=== PATIENT | female | born 1945 | race Caucasian/White ===

== ENCOUNTER 2018-09-03 00:31 | Outpatient (CLI) | payer MEDICARE, BC, SELFPAY ==
--- NOTE | 2018-09-03 11:43 | DI.MAMMO_ITS ---
SYMPTOM/DIAGNOSIS: SCREENING, Z12.31 MAMMOGRAMS: Mammograms were interpreted according to the usual protocol including computer analysis with CAD system, tomosynthesis and C view imaging. Comparison with prior examinations. Breast density B. No suspicious masses or microcalcifications are seen. There is no definite evidence of malignancy. IMPRESSION: Negative mammogram. Routine screening is recommended. Category I. MQSA ASSESSMENT OF FINDINGS: Negative. Category 1. Patient will receive a letter notifying them of these results. BI-RADS category B. There are scattered areas of fibroglandular density.
== END 2018-09-03 00:51 ==
PROVIDERS: PCP Family Medicine; Visit Provider Family Medicine
DX: Z12.31 Encounter for screening mammogram for malignant neoplasm of breast (principal)
CPT/HCPCS: 77063; 77067

== ENCOUNTER 2018-09-27 00:12 | Outpatient (CLI) | payer MEDICARE, BC, SELFPAY ==
--- NOTE | 2018-09-27 13:56 | DI.US_ITS ---
SYMPTOMS/DIAGNOSIS: PELVIC AND PERINEAL PAIN, RECURRENT UTI, R10.2 RENAL ULTRASOUND: The kidneys are normal in size and shape. Tiny echogenic foci are present in both kidneys centrally raising the possibility of intrarenal calculi. There appears to be mild right and left hydronephrosis. The urinary bladder is unremarkable in appearance and pre and post void urinary bladder volume measurements are 289 cc's and 28 cc's respectively. The ureteral jets are visualized bilaterally. CONCLUSION: Question mild bilateral hydronephrosis. If clinically indicated, additional evaluation with CT urogram should be considered. ADDENDUM BY DR ORTEGA OF DICTATION FOR PELVIC AND TV ULTRASOUND: Comparison is made with 08/24/11. Transabdominal and transvaginal exams were performed. The uterus measures 7.1 by 3.8 by 5.6 cm. Multiple calcified fibroids are again noted, the largest posteriorly. The endometrium measures 4 mm. in thickness. There is a small amount of fluid in the endometrium. No focal endometrial abnormality is seen. There are a few small Nabothian cysts. A 1.6 cm. cyst area is seen posterior to the cervix which could represent an additional Nabothian cyst versus mesenteric cyst. The left ovary was unable to be visualized. IMPRESSION: Multiple calcified fibroids. Small amount of fluid in the endometrium without focal endometrial abnormality or thickening. Non visualization of the left ovary. Small cystic area posterior to the cervix could be related to the left ovary which was not definitely seen.
== END 2018-09-27 00:32 ==
PROVIDERS: PCP Family Medicine; Visit Provider Family Medicine
DX: R10.2 Pelvic and perineal pain (principal); N39.0 Urinary tract infection, site not specified; D25.9 Leiomyoma of uterus, unspecified; N13.30 Unspecified hydronephrosis
CPT/HCPCS: 76770; 76830; 76856

== ENCOUNTER → 2018-10-14 11:00 | Outpatient (BNVA) | payer MEDICARE, BC, SELFPAY | PROVIDERS: PCP Family Medicine; Referring Provider Family Medicine; Visit Provider Nurse Practitioner Gerontology | DX: R31.0 Gross hematuria (principal); R10.32 Left lower quadrant pain; Z87.440 Personal history of urinary (tract) infections | CPT/HCPCS: 81003; 99204; 99215 ==

== ENCOUNTER 2018-10-21 00:41 | Outpatient (CLI) | payer MEDICARE, BC, SELFPAY ==
--- NOTE | 2018-10-21 09:46 | DI.CT_ITS ---
SYMPTOM/DIAGNOSIS: GROSS HEMATURIA, R31.0, R31.[address]: Comparison is made with 03/30/10. Images were performed before and after IV contrast. 7 minute delayed images were also performed. There is a 2 by 3 mm. non obstructing stone at the lower pole of the left kidney. A barely visible stone is seen near the lower pole of the right kidney. No ureteral or bladder calculi or hydronephrosis is seen. The nephrograms and pyelograms are symmetric. No collecting system filling defects are seen. No masses are identified. The renal pelves are mildly prominent bilaterally. There is no calyceal blunting. There is kinking of both proximal ureters. The lung bases are clear. The patient is status post cholecystectomy. There are a few tiny liver cysts. The spleen, pancreas and adrenals are unremarkable. The appendix is normal. There is a moderate quantity of stool. Diverticula are seen in the descending and sigmoid colon. There is no evidence of diverticulitis. There is no small bowel dilatation or inflammatory change. A calcified uterine fibroid is seen. The ovaries are unremarkable. There is no free fluid. There is a mild T 11 compression fracture. It appears unchanged when compared with an MRI dated 07/12/15. Degenerative disc changes are seen, greatest at L 5-S 1. IMPRESSION: Small bilateral non obstructing renal calculi. Mild prominence of both renal pelves which may be secondary to kinking of the upper ureters.
[2018-10-21 10:19] LABS: CREATININE 0.58 mg/dL (0.55-1.02)
[2018-10-21] MEDS: Omnipaque 350 MG/ML 100 ML BTL IJ (10:45)
== END 2018-10-21 01:01 ==
PROVIDERS: PCP Family Medicine; Visit Provider Nurse Practitioner Gerontology
DX: R31.0 Gross hematuria (principal); N20.0 Calculus of kidney
CPT/HCPCS: 36415; 74178; 82565; J3490

== ENCOUNTER 2019-10-08 06:17 | Outpatient (CLI) | payer MEDICARE, BC, SELFPAY ==
--- NOTE | 2019-10-08 11:09 | DI.MAMMO_ITS ---
EXAM: MG MAMMO SCREENING CLINICAL HISTORY: screening Z12.39. TECHNIQUE: Full field digital CC and MLO mammographic images were obtained with 3D tomosynthesis and utilizing computer aided detection (CAD). COMPARISON: . 2009 through 2018 FINDINGS: Breast Density - Category B - Scattered areas of fibroglandular density Masses/Architectural Distortion: None seen. Microcalcifications: No suspicious pleomorphic-type calcifications are seen. Skin Thickening/Nipple Retraction: None. Axilla: Unremarkable. IMPRESSION: 1. BI-RADS category 1, negative. No significant interval change with no specific features of maligna ncy noted. 2. Unless there is more urgent need, screening mammography is recommended, as per [employer] [place] guidelines. A negative radiographic report should not delay biopsy if a dominant or clinically suspicious mass is present. Up to ten percent of cancers are not identified on mammography. A negative report may reinforce clinical impression. Adenosis and dense breasts may obscure an underlying neoplasm. False positive reports average 6 to 10%. Patient will receive a letter notifying them of these results.
== END 2019-10-08 06:37 ==
PROVIDERS: PCP Family Medicine; Visit Provider Family Medicine
DX: Z12.31 Encounter for screening mammogram for malignant neoplasm of breast (principal)
CPT/HCPCS: 77063; 77067

== ENCOUNTER 2020-08-04 03:09 | Outpatient (CLI) | payer MEDICARE, BC, SELFPAY ==
[2020-08-04 13:12] LABS: Abs Immature Grans 0.01 10^3/uL (0.0-0.06); Absolute Basophil Count 0.03 10^3/uL (0.0-0.2); Absolute Eosinophil Count 0.09 10^3/uL (0.0-0.7); Absolute Lymphocyte Count 0.84 10^3/uL (1.2-3.4); Absolute Monocyte Count 0.44 10^3/uL (0.1-0.8); Absolute Neutrophil Count 2.69 10^3/uL (1.2-6.7); Basophils % 0.7; Eosinophils % 2.2; HCT 40.4 % (36.0-46.0); HGB 13.8 g/dL (11.2-15.7); Immature Grans % 0.2; Lymphocytes % 20.5; MCH 29.6 pg (27.0-33.0); MCHC 34.2 % (32.0-36.0); MCV 86.5 fL (80-95); MPV 11.3 fL (8.0-11.0); Monocytes % 10.7; Neutrophils % 65.7; Nucleated RBC 0 %; Platelet Count 199 10^3/uL (130-400); RBC 4.67 10^6/uL (3.93-5.22); RDW 12.4 % (11.7-14.6); RDW-SD 39.3 fL
[2020-08-04 13:30] LABS: ALT 24 U/L (14-59); AST 22 U/L (15-37); Albumin 3.8 g/dL (3.4-5.0); Alkaline Phosphatase 75 U/L (46-116); Amylase 73 U/L (25-115); Anion Gap 5.7 mmol/L (3-11); BUN 25 mg/dL (7-18); Bilirubin, Total 0.9 mg/dL (0.2-1.0); CO2 28.3 mmol/L (21.0-32.0); CREATININE 0.66 mg/dL (0.55-1.02); Calcium 9.2 mg/dL (8.5-10.1); Chloride 104 mmol/L (98-107); Glucose 93 mg/dL (74-106); Lipase 117 U/L (73-393); Potassium 4.5 mmol/L (3.5-5.1); Sodium 138 mmol/L (136-145); Total Protein 6.8 g/dL (6.4-8.2)
[2020-08-04 13:40] LABS: Bilirubin Negative (Negative); Blood Trace-intact (Negative); Clarity Clear (Clear); Glucose Negative (Negative); Ketones Negative (Negative); Leukocyte Esterase Negative (Negative); Nitrite Negative (Negative); Specific Gravity 1.025 (1.005-1.025); Urobilinogen 0.2 EU/dL (Up TO 0.2); pH 7.5 (5-8)
[2020-08-04 13:50] LABS: Bacteria Few HPF (Negative); Epithelial Cells Few HPF (Negative); WBC 20-50 HPF (0-5)
[2020-08-04 13:51] LABS: C & S Indicated? Yes; Casts Negative LPF (Negative); Crystals Other HPF (Negative); Mucus Negative (Negative)
[2020-08-04 15:33] LABS: ESR 9 mm/hr (0-30)
== END 2020-08-04 03:29 ==
PROVIDERS: PCP Family Medicine; Visit Provider Family Medicine
DX: R10.9 Unspecified abdominal pain (principal)
CPT/HCPCS: 36415; 80053; 83690; 85652; 87077; 81003; 81015; 82150; 85025; 87086; 87186

== ENCOUNTER 2020-08-26 12:56 | Outpatient (REF) | payer MEDICARE, BC, SELFPAY ==
[2020-08-26 14:04] LABS: Bilirubin Negative (Negative); Blood Trace-intact (Negative); Clarity Clear (Clear); Glucose Negative (Negative); Ketones Negative (Negative); Leukocyte Esterase Negative (Negative); Nitrite Negative (Negative); Urobilinogen 0.2 EU/dL (Up TO 0.2); pH 7.5 (5-8)
[2020-08-26 14:22] LABS: Bacteria Moderate HPF (Negative); C & S Indicated? Yes; Casts Negative LPF (Negative); Crystals Negative HPF (Negative); Epithelial Cells Rare HPF (Negative); Mucus Negative (Negative)
== END 2020-08-26 13:16 ==
LOC: LBN 12:56
PROVIDERS: PCP Family Medicine; Visit Provider Family Medicine
DX: R31.9 Hematuria, unspecified (principal)
CPT/HCPCS: 87077; 81003; 81015; 87086; 87186

== ENCOUNTER 2020-09-22 21:48 | Outpatient (REF) | payer MEDICARE, BC, SELFPAY ==
[2020-09-22 22:35] LABS: Bacteria Negative HPF (Negative); Bilirubin Negative (Negative); Blood Negative (Negative); Casts Negative LPF (Negative); Clarity Clear (Clear); Crystals Negative HPF (Negative); Epithelial Cells Few HPF (Negative); Glucose Negative (Negative); Ketones Negative (Negative); Leukocyte Esterase Trace (Negative); Mucus Negative (Negative); Nitrite Negative (Negative); RBC Negative HPF (0-2); Specific Gravity 1.015 (1.005-1.025); Urobilinogen 0.2 EU/dL (Up TO 0.2)
[2020-09-23 07:16] LABS: C & S Indicated? Yes
== END 2020-09-22 22:08 ==
LOC: NCHCN 21:48
PROVIDERS: PCP Family Medicine; Visit Provider Family Medicine
DX: R31.9 Hematuria, unspecified (principal)
CPT/HCPCS: 87077; 81003; 81015; 87086; 87186

== ENCOUNTER 2020-10-13 02:49 | Outpatient (CLI) | payer MEDICARE, BC, SELFPAY ==
[2020-10-13 12:57] LABS: Bilirubin Negative (Negative); Blood Negative (Negative); Clarity Clear (Clear); Glucose Negative (Negative); Ketones Negative (Negative); Leukocyte Esterase Negative (Negative); Nitrite Negative (Negative); Specific Gravity 1.025 (1.005-1.025); Urobilinogen 0.2 EU/dL (Up TO 0.2); pH 7.5 (5-8)
== END 2020-10-13 02:50 | disposition home or self-care (01) ==
LOC: LOS 02:49
PROVIDERS: PCP Family Medicine; Visit Provider Family Medicine
DX: R31.9 Hematuria, unspecified (principal); Z87.440 Personal history of urinary (tract) infections
CPT/HCPCS: 81003

== ENCOUNTER 2020-12-13 01:21 | Outpatient (CLI) | payer MEDICARE, BC, SELFPAY ==
--- NOTE | 2020-12-13 07:45 | DI.US_ITS ---
EXAM: US PELVIS TRANSVAGINAL CLINICAL HISTORY: LLQ, recurrent. protective services officer exam unremarkable,R10.32 TECHNIQUE: Ultrasound of the pelvis was performed both transabdominal and transvaginal. COMPARISON: US US renal pelvic transvaginal from 09/27/2018 FINDINGS: Both transabdominal and transvaginal pelvic ultrasound examinations were performed. UTERUS: Measures 8 cm length x 4.8 cm AP x 5.2 cm wide. There are multiple uterine fibroids again notedlargest again noted be located posteriorly and measure s approximately 2.8 x 2.5 x 2.3 cm. This is left of center. Other smaller fibroids are noted at the level the fundus. Endometrial thickness measures 1-2 mm. There is no fluid in the endometrial canal. CERVIX: Multiple small nabothian cysts are again noted. RIGHT OVARY: Measures 2.3 x 1.8 x 1.7 cm No significant cysts nor masses evident in the right ovary. LEFT OVARY: Measures 2.1 x 1.2 x 1.4 cm No significant cysts nor masses evident in the left ovary. CUL-DE-SAC: No free fluid evident. IMPRESSION: 1. Multiple calcified uterine fibroids again noted. 2. No obvious abnormal adnexal findings. 3. No free fluid evident in the adnexal regions and cul-de-sac. DATA REPOSITORY:
== END 2020-12-13 01:41 ==
PROVIDERS: PCP Family Medicine; Visit Provider Obstetrics & Gynecology Gynecology
DX: R10.32 Left lower quadrant pain (principal); D25.9 Leiomyoma of uterus, unspecified
CPT/HCPCS: 76830; 76856

== ENCOUNTER 2021-01-05 01:55 | Outpatient (CLI) | payer MEDICARE, BC, SELFPAY ==
--- NOTE | 2021-01-05 11:15 | DI.MAMMO_ITS ---
Exam(s) MAMMO SCREENING EXAM: MAMMO SCREENING CLINICAL HISTORY: screening,Z12.39. TECHNIQUE: Bilateral full field digital CC and MLO mammographic images were obtained with 3D tomosyn thesis and utilizing computer aided detection (CAD). COMPARISON: Prior mammograms dating back to 2010, the most recent being September 2019. FINDINGS: There are no new spiculated masses nor malignant appearing microcalcification groups. Asymmetric density anteriorly in the left breast is unchanged from prior studies. There is no significant architectural distortion nor skin thickening-retraction. IMPRESSION: No radiographic evidence of malignancy. BI-RADS Category 1 - Negative Breast Density - Category B - Scattered areas of fibroglandular density Breast density Category C or D implies that the patient has dense breast tissue. Dense breast tissue can make it harder to find cancer on a mammogram. Dense breast tissue is also associated with an incr eased risk of breast cancer. This information about the result of the mammogram report was provided to the patient to raise their awareness. Use this report when you speak with the patient about their risks for breast cancer, which includes their family history. At that time, you may recommend additional screening tests (Ultrasoun d or MRI) as these tests may add significant information. A negative radiographic report should not delay biopsy if a dominant or clinically suspicious mass is present. Up to ten percent of cancers are not identified on mammography. A negative report may reinforce clinical impression. Adenosis and dense breasts may obscure an underlying neoplasm. False positive reports average 6 to 10%. Patient will receive a letter notifying them of these results.
== END 2021-01-05 02:15 ==
PROVIDERS: PCP Family Medicine; Visit Provider Family Medicine
DX: Z12.31 Encounter for screening mammogram for malignant neoplasm of breast (principal)
CPT/HCPCS: 77063; 77067

== ENCOUNTER 2021-02-01 20:54 | Outpatient (REF) | payer MEDICARE, BC, SELFPAY | END 2021-02-01 20:55 | disposition home or self-care (01) | LOC: LBN 20:54 | PROVIDERS: PCP Family Medicine; Visit Provider Nurse Practitioner Family | DX: N39.0 Urinary tract infection, site not specified (principal) | CPT/HCPCS: 87086 ==

== ENCOUNTER 2021-02-09 20:57 | Outpatient (REF) | payer MEDICARE, BC, SELFPAY ==
[2021-02-09 17:30] LABS: Bilirubin Negative (Negative); Blood Trace-intact (Negative); Clarity Clear (Clear); Glucose Negative (Negative); Ketones Negative (Negative); Leukocyte Esterase Trace (Negative); Nitrite Positive (Negative); Specific Gravity 1.025 (1.005-1.025); Urobilinogen 0.2 EU/dL (Up TO 0.2)
[2021-02-09 18:26] LABS: Bacteria Many HPF (Negative); C & S Indicated? Yes; Casts Negative LPF (Negative); Crystals Negative HPF (Negative); Epithelial Cells Few HPF (Negative); Mucus Negative (Negative); Other Cells Negative (Negative); RBC Negative HPF (0-2); WBC >50 HPF (0-5)
== END 2021-02-09 20:58 | disposition home or self-care (01) ==
LOC: LBN 20:57
PROVIDERS: PCP Family Medicine; Visit Provider Family Medicine
DX: N39.0 Urinary tract infection, site not specified (principal)
CPT/HCPCS: 87077; 81003; 81015; 87086; 87186

== ENCOUNTER 2021-02-17 18:16 | Outpatient (REF) | payer MEDICARE, BC, SELFPAY | END 2021-02-17 18:17 | disposition home or self-care (01) | LOC: LBN 18:16 | PROVIDERS: PCP Family Medicine; Visit Provider Nurse Practitioner | DX: N76.0 Acute vaginitis (principal); R30.0 Dysuria | CPT/HCPCS: 87480; 87510; 87660 ==

== ENCOUNTER 2021-06-07 09:16 | Outpatient (CLI) | payer MEDICARE, BC, SELFPAY ==
--- NOTE | 2021-06-07 09:00 | DI.RAD_ITS ---
Exam(s) XR SHOULDER RT COMPLETE 2+V EXAM: XR SHOULDER RT COMPLETE 2+V CLINICAL HISTORY: R shoulder pain. TECHNIQUE: 2D digital imaging was performed. COMPARISON: No exams were available for comparison FINDINGS: No evidence of fracture or dislocation. There is a calcific density measuring 5 x 4 millimeters in the subacromial space just above the great er tuberosity consistent with calcific tendinitis of the rotator cuff. The subacromial space itself does not appear significantly diminished. Mild degenerative changes are noted in the glenohumeral an d AC joints. IMPRESSION: Calcific rotator cuff tendinitis. If clinically indicated follow-up MRI can be performed. DATA REPOSITORY: RADIATION DOSE DELIVERED:
== END 2021-06-07 09:17 | disposition home or self-care (01) ==
LOC: DIORS 09:16
PROVIDERS: PCP Family Medicine; Referring Provider Family Medicine; Visit Provider Student in an Organized Health Care Education/Training Program
DX: M25.511 Pain in right shoulder (principal); M75.21 Bicipital tendinitis, right shoulder; M75.31 Calcific tendinitis of right shoulder
CPT/HCPCS: 20610; 99203; 99213; 73030; J1030

== ENCOUNTER 2021-07-05 01:27 | Outpatient (RCR) | payer MEDICARE, BC, SELFPAY ==
--- NOTE | 2021-07-05 11:30 | HOLTER_ITS ---
APPROVED REPORT Conclusion This was a 48-hour Holter monitor reportedly ordered for bradycardia and presyncope Rhythm throughout was sinus with an average heart rate of 75. Minimum was 56, maximum 101 There were rare ventricular ectopic beats There were occasional atrial premature beats There were multiple brief self-limited atrial runs, the longest of which was 5 beats in duration There was no atrial fibrillation, no high-grade AV block, no pauses greater than 3 seconds Brief periods of Mobitz 1 second-degree AV block ([place]) were recorded during sleep Patient symptoms corresponded to sinus rhythm at 92 with an isolated atrial premature beat
== END 2021-07-26 23:59 | disposition home or self-care (01) ==
LOC: RT 01:27
PROVIDERS: PCP Family Medicine; Visit Provider Family Medicine
DX: R00.1 Bradycardia, unspecified (principal); R55 Syncope and collapse; I49.1 Atrial premature depolarization; I44.1 Atrioventricular block, second degree
CPT/HCPCS: 93227; 93225; 93226

== ENCOUNTER 2021-07-12 08:52 | Outpatient (CLI) | payer MEDICARE, BC, SELFPAY ==
[2021-07-12 13:52] LABS: HCT 41.5 % (36.0-46.0); MCH 29.4 pg (27.0-33.0); MCHC 33.7 % (32.0-36.0); MCV 87.2 fL (80-95); MPV 10.3 fL (8.0-11.0); Platelet Count 262 10^3/uL (130-400); RBC 4.76 10^6/uL (3.93-5.22); RDW 12.4 % (11.7-14.6); RDW-SD 39.8 fL; WBC 5.92 10^3/uL (4.4-10.8)
[2021-07-12 15:06] LABS: ALT 28 U/L (14-59); AST 23 U/L (15-37); Albumin 3.9 g/dL (3.4-5.0); Alkaline Phosphatase 76 U/L (46-116); Anion Gap 7.8 mmol/L (3-11); BUN 23 mg/dL (7-18); CO2 29.2 mmol/L (21.0-32.0); CREATININE 0.6 mg/dL (0.55-1.02); Calcium 9.6 mg/dL (8.5-10.1); Chloride 105 mmol/L (98-107); Glucose 93 mg/dL (74-106); Potassium 4.3 mmol/L (3.5-5.1); Sodium 142 mmol/L (136-145); TSH 1.61 uIU/mL (0.36-3.74); Total Protein 6.8 g/dL (6.4-8.2)
== END 2021-07-12 08:53 | disposition home or self-care (01) ==
LOC: LBO 08:52
PROVIDERS: PCP Family Medicine; Visit Provider Family Medicine
DX: I10 Essential (primary) hypertension (principal); R00.2 Palpitations
CPT/HCPCS: 36415; 80053; 85027; 84443

== ENCOUNTER 2021-08-13 16:47 | Outpatient (REF) | payer MEDICARE, BC, SELFPAY | END 2021-08-13 16:48 | disposition home or self-care (01) | LOC: LBN 16:47 | PROVIDERS: PCP Family Medicine; Visit Provider Physician Assistant | DX: L02.31 Cutaneous abscess of buttock (principal) | CPT/HCPCS: 87070; 87205 ==

== ENCOUNTER 2022-06-12 03:26 | Outpatient (CLI) | payer MEDICARE, SELFPAY ==
[2022-06-12 09:13] LABS: ALT 23 U/L (14-59); AST 19 U/L (15-37); Albumin 3.6 g/dL (3.4-5.0); Alkaline Phosphatase 80 U/L (46-116); Anion Gap 7.1 mmol/L (3-11); BUN 26 mg/dL (7-18); Bilirubin, Total 1.1 mg/dL (0.2-1.0); CO2 28.9 mmol/L (21.0-32.0); CREATININE 0.6 mg/dL (0.55-1.02); Calcium 9.3 mg/dL (8.5-10.1); Calculated LDL 91 mg/dL (<100); Chloride 102 mmol/L (98-107); Cholesterol 187 mg/dL (<200); Estimated GFR 93.55 (mL/min/1.73m2); Glucose 92 mg/dL (74-106); HDL Cholesterol 85 mg/dL (40-60); Potassium 4.3 mmol/L (3.5-5.1); Sodium 138 mmol/L (136-145); TSH (W/Ref FT4) 2.43 uIU/mL (0.36-3.74); Total Protein 6.8 g/dL (6.4-8.2); Triglyceride 57 mg/dL (<150)
== END 2022-06-12 03:27 | disposition home or self-care (01) ==
LOC: LBO 03:26
PROVIDERS: PCP Student in an Organized Health Care Education/Training Program; Referring Provider Student in an Organized Health Care Education/Training Program; Visit Provider Student in an Organized Health Care Education/Training Program
DX: I10 Essential (primary) hypertension (principal); K58.9 Irritable bowel syndrome, unspecified; K76.89 Other specified diseases of liver
CPT/HCPCS: 36415; 80053; 80061; 84443

== ENCOUNTER → 2022-07-06 02:13 | Outpatient (CLI) | payer MEDICARE, SELFPAY ==
--- NOTE | 2022-07-06 08:15 | DI.MAMMO_ITS ---
Exam(s) MAMMO SCREENING EXAM: MAMMO SCREENING CLINICAL HISTORY: screening,z12.39 TECHNIQUE: Bilateral full field digital CC and MLO mammographic images were obtained with 3D tomosyn thesis and utilizing computer aided detection (CAD). COMPARISON: Available for comparison. FINDINGS: Masses/Architectural Distortion: None seen. Microcalcifications: No suspicious pleomorphic-type are seen. Skin Thickening/Nipple Retraction: None. IMPRESSION: 1. No significant interval change with no specific features of malignancy noted. 2. Unless there is more urgent need, screening mammography is recommended, as per [employer] guidelines. BI-RADS Category 1 - Negative Breast Density - Category B - Scattered areas of fibroglandular density Breast density category C or D implies that the patient has dense breast tissue. Dense breast tissue is very common and is not abnormal but dense breast tissue can make it harder to find cancer on a ma mmogram. Also, dense breast tissue may increase their breast cancer risk. This information about the result of the mammogram report was provided to the patient to raise their awareness. Use this report when you speak with the patient about their risks for breast cancer, which includes their family hist ory. At that time, you may recommend for more screening tests (Ultrasound or MRI) as they might be us eful based on their risk. A negative radiographic report should not delay biopsy if a dominant or clinically suspicious mass is present. Up to ten percent of cancers are not identified on mammography. A negative report may reinforce clinical impression. Adenosis and dense breasts may obscure an underlying neoplasm. False positive reports average 6 to 10%. Patient will receive a letter notifying them of these results.
== END ==
PROVIDERS: PCP Student in an Organized Health Care Education/Training Program; Visit Provider Student in an Organized Health Care Education/Training Program
DX: Z12.31 Encounter for screening mammogram for malignant neoplasm of breast (principal)
CPT/HCPCS: 77063; 77067

== ENCOUNTER 2023-02-06 18:43 | Outpatient (CLI) | payer MEDICARE, SELFPAY ==
[2023-02-06 15:16] LABS: Abs Immature Grans 0.01 10^3/uL (0.0-0.06); Absolute Basophil Count 0.01 10^3/uL (0.0-0.2); Absolute Eosinophil Count 0.09 10^3/uL (0.0-0.7); Absolute Lymphocyte Count 1.06 10^3/uL (1.2-3.4); Absolute Monocyte Count 0.54 10^3/uL (0.1-0.8); Absolute Neutrophil Count 3.38 10^3/uL (1.2-6.7); Basophils % 0.2; Eosinophils % 1.8; HCT 41.8 % (36.0-46.0); HGB 14.1 g/dL (11.2-15.7); Immature Grans % 0.2; Lymphocytes % 20.8; MCH 29.5 pg (27.0-33.0); MCHC 33.7 % (32.0-36.0); MCV 87 fL (80-95); MPV 10.5 fL (8.0-11.0); Monocytes % 10.6; Neutrophils % 66.4; Platelet Count 233 10^3/uL (130-400); RBC 4.78 10^6/uL (3.93-5.22); RDW 12.4 % (11.7-14.6); RDW-SD 39.9 fL; WBC 5.09 10^3/uL (4.4-10.8)
[2023-02-07 12:00] LABS: Lyme Ab w Rflx to Lyme Confirm Negative (Negative)
[2023-02-09 19:36] LABS: Anaplasma phagocytophilum Negative (Negative); B. miyamotoi PCR Negative (Negative); Babesia divergens/MO-1 Negative (Negative); Babesia duncani Negative (Negative); Babesia microti Negative (Negative); Ehrlichia chaffeensis Negative (Negative); Ehrlichia ewingii/canis Negative (Negative); Ehrlichia muris eauclairensis Negative (Negative)
== END 2023-02-06 18:44 | disposition home or self-care (01) ==
LOC: LBO 18:43
PROVIDERS: PCP Student in an Organized Health Care Education/Training Program; Visit Provider Physician Assistant
DX: R51.9 Headache, unspecified (principal); S30.861A Insect bite (nonvenomous) of abdominal wall, initial encounter; W57.XXXA Bitten or stung by nonvenomous insect and other nonvenomous arthropods, initial encounter
CPT/HCPCS: 36415; 87798; 85025; 86618

== ENCOUNTER → 2023-07-09 00:26 | Outpatient (CLI) | payer MEDICARE, SELFPAY ==
--- NOTE | 2023-07-09 07:30 | DI.CT_ITS ---
Exam(s) CT ABDOMEN PELVIS W EXAM: CT ABDOMEN PELVIS W CLINICAL HISTORY: low abd pain,?adhesions,early hernia,entrapment,n73.6,r10.9. TECHNIQUE: Imaging Protocol: Axial computed tomography images with coronal and sagittal reformatted images were created and reviewed CONTRAST MATERIAL: Intravenous: Omnipaque-350 100cc Oral: Yes. Oral contrast was also administered for bowel opacification. COMPARISON: CT CT ABDOMEN PELVIS WO/W from 10/21/2018 FINDINGS: VISUALIZED LUNG BASES: No nodules nor pleural effusions evident. ABDOMEN: There is no ascites. LIVER: There are few tiny 1-2 mm size benign intrahepatic cysts evident. Also very minimal prominenc e of a few intrahepatic ducts. GALLBLADDER/BILIARY: Gallbladder is again noted to be surgically absent. CBD is not dilated. PANCREAS: There is duodenal diverticulum overlying lower lateral aspect of the pancreatic head. Daniella iván of the pancreas appears unremarkable. Pancreatic duct is not dilated. Uncinate process exhibi ts normal triangular configuration. SPLEEN: Spleen is not enlarged. No obvious intrasplenic lesions. Splenic and portal veins are paten t. ADRENALS: There are no significant adrenal masses. KIDNEYS:No cysts evident. No solid renal masses. No calculi nor hydronephrosis.. There is a presen t small calculus in the left kidney lower pole seen on CT scan of September 2018 is not evident on the present study. No hydronephrosis nor hydroureter. There are no calculi in the lumen of the urinary bladder. ABDOMINAL AORTA: Abdominal aorta is not enlarged. LYMPH NODES:There is no retroperitoneal nor paraaortic adenopathy. ABDOMINAL WALL: No evidence of significant anterior abdominal wall nor inguinal hernia. Also no obvi ous inguinal hernias. GI: There is no evidence of bowel obstruction, free air, nor abscess. PELVIS: GI: No evidence of appendicitis.There are diverticuli evident in the distal half of the colon. No ev idence of obvious acute diverticulitis. No abscess. REPRODUCTIVE: Calcified uterine fibroids again noted. No abnormal adnexal masses evident and no free fluid in the cul-de-sac. URINARY BLADDER: No calculi nor obvious masses evident OSSEOUS: There is a healed fracture of the inferior pubic ramus right-side again noted. No acute fra ctures. Advanced chronic degenerative disc disease disc space narrowing at L5-S1 noted no listhesis. IMPRESSION: 1. The previously present calculus in left kidney seen on CT scan of 2019 is no longer seen. There a re no renal calculi evident add no obstruction of the urinary tracts on either side nor radiopaque ca lculi seen within the urinary bladder lumen. 2. Gallbladder surgically absent. Amount of dilatation of the biliary tree is commensurate with malathi ent's age and post cholecystectomy status. 3. Calcified uterine fibroids again noted. No abnormal adnexal masses. 4. There is a duodenal diverticulum obscures visualization of the lateral aspect of the pancreatic he ad. No obvious pancreatic head mass seen. The remainder of the pancreas also appears unremarkable. Pancreatic duct is not dilated. RADIATION DOSE DELIVERED: Total DLP DATA REPOSITORY: All CT scans at this facility are submitted to the National Radiology Data Registry (NRDR) Dose Index Registry (DIR) with the [employer] (ACR). RADIATION OPTIMIZATION: All CT scans at this facility use at least one of these dose optimization te chniques: automated exposure control; mA and/or kV adjustment per patient size (includes targeted exa ms where dose is matched to clinical indication); or iterative reconstruction.
[2023-07-09] MEDS: Barium Sulfate 2% W/V-Berry Smoothie 450 ML BTL 900 ML PO (09:41)
[2023-07-09 10:20] LABS: ALT 26 U/L (14-59); AST 24 U/L (15-37); Albumin 3.8 g/dL (3.4-5.0); Alkaline Phosphatase 79 U/L (46-116); Anion Gap 6.1 mmol/L (3-11); BUN 26 mg/dL (7-18); Bilirubin, Total 1.2 mg/dL (0.2-1.0); CO2 29.9 mmol/L (21.0-32.0); CREATININE 0.6 mg/dL (0.55-1.02); Calcium 9.8 mg/dL (8.5-10.1); Chloride 102 mmol/L (98-107); Estimated GFR 92.97 (mL/min/1.73m2); Glucose 109 mg/dL (74-106); Potassium 4.1 mmol/L (3.5-5.1); Sodium 138 mmol/L (136-145); Total Protein 7.3 g/dL (6.4-8.2)
[2023-07-09] MEDS: Omnipaque 350 MG/ML 500 ML BTL-Imaging package IJ (11:32)
[2023-07-09] MEDS: Normal Saline - Diluent 50 ML VIAL IJ (11:32)
[2023-07-09] MEDS: Normal Saline Flush 10 ML SYR IVP (11:33)
== END ==
PROVIDERS: PCP Student in an Organized Health Care Education/Training Program; Visit Provider Student in an Organized Health Care Education/Training Program
DX: R10.9 Unspecified abdominal pain; D25.9 Leiomyoma of uterus, unspecified; K58.9 Irritable bowel syndrome, unspecified; N73.6 Female pelvic peritoneal adhesions (postinfective)
CPT/HCPCS: 36415; 80053; 74177

== ENCOUNTER → 2023-10-04 00:50 | Outpatient (CLI) | payer MEDICARE, SELFPAY ==
--- NOTE | 2023-10-04 14:16 | DI.DEXA_ITS ---
Exam(s) XR DEXA BONE DENSITY W/WO BUSTER EXAM: XR DEXA BONE DENSITY W/WO BUSTER CLINICAL HISTORY: screening for osteoporosis in postmenopausal woman,z78.0,osteopenia TECHNIQUE: Hologic Horizon C densitometer analysis of left hip, lumbar spine and left forearm. Lat eral survey image of the thoracic and lumbar spine. COMPARISON: MR MRI - LUMBAR SPINE WO CONTRAST from 07/12/[address] ABDOMEN PELVIS W from 07/09/2023 FINDINGS: Lateral view of the thoracic and lumbar spine shows mild compression fractures of T10 and T11. Bone mineral density measurements of the lumbar spine correspond to a total T-score of -1.1, in the osteopenic range. Bone mineral density measurements of the left hip correspond to a total T-score of -1.9. The femora l neck T-score is -1.8, in the osteopenic range.. Theleft forearm bone mineral density measurements correspond to a T-score of the distal 3rd of -3.4, in the osteoporotic range.. IMPRESSION: Osteopenia of the lumbar spine and hip. Osteoporosis of the forearm.
== END ==
PROVIDERS: PCP Student in an Organized Health Care Education/Training Program; Visit Provider Student in an Organized Health Care Education/Training Program
DX: Z13.820 Encounter for screening for osteoporosis (principal); Z78.0 Asymptomatic menopausal state; M85.89 Other specified disorders of bone density and structure, multiple sites
CPT/HCPCS: 77080

== ENCOUNTER 2024-01-22 01:36 | Outpatient (CLI) | payer MEDICARE, SELFPAY ==
[2024-01-22 10:53] LABS: Vitamin D 25 Total 38.8 ng/mL (30-100)
== END 2024-01-22 01:37 | disposition home or self-care (01) ==
LOC: LBO 01:36
PROVIDERS: PCP Student in an Organized Health Care Education/Training Program; Visit Provider Student in an Organized Health Care Education/Training Program
DX: M85.89 Other specified disorders of bone density and structure, multiple sites; K21.00 Gastro-esophageal reflux disease with esophagitis, without bleeding
CPT/HCPCS: 36415; 82306

== ENCOUNTER 2024-03-05 14:56 | Outpatient (CLI) | payer MEDICARE, SELFPAY ==
--- NOTE | 2024-03-05 14:00 | DI.RAD_ITS ---
Exam(s) XR SHOULDER RT COMPLETE 2+V EXAM: XR SHOULDER RT COMPLETE 2+V CLINICAL HISTORY: right shoulder pain. TECHNIQUE: 2D digital imaging was performed of the right shoulder. Two images were obtained. Grash ey and axillary views were obtained. COMPARISON: CR XR SHOULDER RT COMPLETE 2+V from 06/07/2021 FINDINGS: BONES: No acute fracture is present. No bony destructive lesion is seen. Small subchondral cyst is se en in the lateral aspect of the humeral head. JOINTS: No dislocation present. There is mild narrowing of the glenohumeral joint. SOFT TISSUE: The previously seen calcification is not visualized on the current examination. This ma y be due to patient positioning. IMPRESSION: There are mild degenerative changes seen in the right shoulder. DATA REPOSITORY: RADIATION DOSE DELIVERED:
== END 2024-03-05 14:57 | disposition home or self-care (01) ==
LOC: DIORS 14:56
PROVIDERS: PCP Student in an Organized Health Care Education/Training Program; Referring Provider Student in an Organized Health Care Education/Training Program; Visit Provider Physician Assistant
DX: M19.011 Primary osteoarthritis, right shoulder; S46.001A Unspecified injury of muscle(s) and tendon(s) of the rotator cuff of right shoulder, initial encounter; X58.XXXA Exposure to other specified factors, initial encounter
CPT/HCPCS: 99213; 73030

== ENCOUNTER 2024-08-21 00:06 | Outpatient (CLI) | payer MEDICARE, SELFPAY ==
--- OUTSIDE RECORDS SUMMARY | 2024-08-21 00:08 | XMS_ITS | Referral Summary ---
Author Organization [facility] Address [address] [place] [id number] Care Team Providers Care Retail Salesperson Name Role Phone Precious Hurtado MD Primary Care Provider [phone] Social History Tobacco Use Types Packs/Day Years Used Date Smoking Tobacco: Never Assessed Comments Unknown Sex and Gender Information Value Date Recorded Sex Assigned at Not on file Legal Sex Female 17:57 EST Gender Identity Not on file Sexual Orientation Not on file Plan of Treatment Not on file Care Teams Retail Salesperson Relationship Specialty Start Date End Date Precious Hurtado MD [address] [place] [address] [place] [address] PCP - General 07/02/15
--- OUTSIDE RECORDS SUMMARY | 2024-08-21 00:08 | XMS_ITS | Clinical Summary ---
Author Organization [facility] Address [address] [place] [id number] Care Team Providers Care Data Warehouse Administrator Name Role Phone Precious Hurtado MD Primary Care Provider [phone] Social History Tobacco Use Types Packs/Day Years Used Date Smoking Tobacco: Never Assessed Comments Unknown Sex and Gender Information Value Date Recorded Sex Assigned at Not on file Legal Sex Female 17:57 EST Gender Identity Not on file Sexual Orientation Not on file Plan of Treatment Health Maintenance Due Date Last Done Comments Hepatitis C Screen 1945 Fall Risk Screening 2011 RSV Immunization ( o r 60+ Years) (1 - 1-dose 75+ series) 2021 COVID-19 Vaccine (2023-25 season) 2024 Care Teams Data Warehouse Administrator Relationship Specialty Start Date End Date Precious Hurtado MD [address] [place] [address] [place] [address] PCP - General 07/02/15
--- OUTSIDE RECORDS SUMMARY | 2024-08-21 00:09 | XMS_ITS | Clinical Summary ---
Author Organization [facility] [place] [address] Care Team Providers Care Ged Preparation Teacher Name Role Phone Unknown Primary Care Provider Unavailabl e Allergies No known active allergies Medications Medication Sig Dispensed Refills Start Date End Date Status dicyclomine (BENTYL) 10 mg capsule Take 10 mg by mouth as needed (She stated she has not used in years but has on hand). 09/18/2006 Active hydroCHLOROthiazide (Hydrodiuril) 12.5 mg Tablet Take 12.5 mg by mouth daily. Not taking currently didn't feel well, would like to discuss 07/04/2021 Active calcium carbonate (CALCIUM 600 ORAL) Take 600 mg by mouth daily. Active vit C/E/zinc ox/dougie/lut/zeax (ICAPS AREDS2 ORAL) Take 1 capsule by mouth daily. Active estradioL (ESTRACE) 0.01 % (0.1 mg/gram) Cream Place 2 g vaginally once a week. Active losartan (Cozaar) 25 mg Tablet Take 1 tablet by mouth daily. 90 tablet 07/25/2021 Active Active Problems Problem Noted Date Diagnosed Date Bradycardia, unspecified 07/14/2021 Immunizations Name Administration Dates Next Due Hepatitis A, Unspecified Formulation 09/18/2006 Influenza Vaccine, Whole 09/18/2006 Typhoid Live, Oral 09/18/2006 Social History Tobacco Use Types Packs/Day Years Used Date Smoking Tobacco: Unknown Smokeless Tobacco: Never Sex and Gender Information Value Date Recorded Sex Assigned at Not on file Gender Identity Not on file Sexual Orientation Not on file Last Filed Vital Signs Vital Sign Reading Time Taken Comments Blood Pressure 155/74 11/21/2021 9:20 AM EDT Pulse 65 11/21/2021 9:20 AM EDT Temperature - - Respiratory Rate - - Oxygen Saturation 99% 11/21/2021 9:20 AM EDT Inhaled Oxygen Concentration - - Weight 75.9 kg (167 lb 6.4 oz) 11/21/2021 9:20 A M EDT Height 162.6 cm (5' 4) 11/21/2021 9:20 AM EDT Body Mass Index 28.73 11/21/2021 9:20 AM EDT Plan of Treatment Health Maintenance Due Date Last Done Comments Hepatitis C Screening 1963 Tetanus/Diphtheria/Pertussis Vaccines (1 - Tdap) 09/26 Pneumoccocal Vaccine: 65+ (1 of 1 - PCV) 1996 Zoster vaccine (1 of 2) 1996 Advance Directive 2001 RSV Vaccine (1 - 1-dose 75+ series) 2021 Covid-19 Vaccine (1 - season) 2024 Influenza (Flu) vaccine (1 o f 1 - Influenza standard series) 04/27/2024 09/18/2006 Bone Density Scan 06/26/2026 06/26/2011 Procedures Procedure Name Priority Date/Time Associated Diagnosis Comments DXA CENTRAL SPINE, HIP, AND/OR WHOLE BODY (GENERIC) Routine 06/26/2011 1:09 PM EDT from Last 3 Months or Most Recently Relevant to Health Maintenance Results * DEXA CENTRAL-SPINE, HIP, AND/OR WHOLE BODY (06/26/2011 1:09 PM EDT) Anatomical Region Laterality Modality C-spine, Hip N/A Radiographic Cristine ging 06/26/2011 1:09 PM EDT Narrative 06/27/2011 1:17 PM EDT EXAMINATION: DEXA. DATE OF EXAM: 06-26-11. CLINICAL HISTORY: 65-year-old woman, status post onset of menopause at age 56. FINDINGS: Measurements are acquired at the lumbar spine and left hip. The total hip and total spine measurements are compared to a series of earlier measurements including the most recent from 2008 and the patient's baseline exam from 2001. At the left hip, bone density has decreased by 3.6 percent compared to 2009 and the current measurement is 10.2 percent lower than the baseline 2001 examination. At the lumbar spine, there is an increase in bone density of 7.3 percent compared to 2009. The current measurement is not significantly changed from 2001. ?? The patient's lowest bone measurement at a diagnostic region of interest is a T-score of -1.8 at the lumbar spine. This measurement is in the osteopenia category by WHO criteria. ?? IMPRESSION: 1. The comparison to earlier measurements indicates an increase of bone density at the spine while the total hip measurement has decreased. In this age group, such a discrepancy is most commonly explained by the presence of progressive degenerative changes at the spine and possibley vascular calcifications. I do not see obvious vascular calcification on the leadite heater view, but there is a degree of scoliosis and some endplate sclerosis evident on the low quality image we have for evaluating the spine. While not diagnostic, the image does suggest that this may be the explanation of the discordance between changes seen at the hip and spine. While it is not possible to know for sure, I suspect that the measured decrease at the hip is a more accurate reflection of overall changes in bone mineral density in the this patient. ?? 2. Bone mineral density is in the osteopenia category by WHO criteria. ESTIMATING FRACTURE RISK: ?? The relationship between bone mineral density (BMD) and risk of fracture is well established. As BMD decreases, risk increases. Quantifying risk is difficult and is usually limited to estimation of the relative risk - a term which may have limited value when trying to discuss an individual's risk. Estimating the absolute risk for a patient requires an understanding of the incidence rate in a given population and consideration of multiple, partially independent, risk factors in addition to BMD. ?? The World Health Organization (WHO) has developed a fracture risk prediction tool that calculates a ten-year risk of major osteoporotic fracture based on femoral neck bone density measurements and nine clinical risk factors for individuals who have not been treated for osteoporosis. This is available through an interactive web-based interface (http://www.shef.ac.uk/FRAX/) and can be used to estimate a given patient's absolute risk of major osteoporotic fracture or hip fracture over the next 10 years. These estimates may prove useful when discussing risk with a patient. It is important, however, to understand the tool's limitations and how a given individual's risk might differ from the tool's estimate. The tool does not take into account the dose-response associated with most risk factors. ??For example, the significant increase in risk associated with multiple prior fractures compared to a single prior fracture is not taken into account. Similarly, the location of a previous fracture, the amount of glucocorticoids and number of cigarettes smoked are not considered. These limitations are discussed in a Frequently Asked Questions section of the FRAX website which you are encouraged to review. ?? DEXA data sheets with BMD measurements and plots are available in CIS under Radiology Images. Paper copies will be sent to providers without CIS access. If you have received this report without the data sheet and do not have access to CIS, please contact Radiology Research Biostatistician at [phone] Sunday thru Sunday 8am-4pm. Procedure Note Rick Segundo MD - 06/27/2011 EXAMINATION: DEXA. DATE OF EXAM: 06-26-11. CLINICAL HISTORY: 65-year-old woman, status post onset of menopause at age56. FINDINGS: Measurements are acquired at the lumbar spine and left hip. The total hip and total spine measurements are compared to a series of earlier measurements including the most recent from 2008 and the patient'sbaseline exam from 2001. At the left hip, bone density has decreased by 3.6 percent compared to 2008 and the current measurement is 10.2 percent lower thanthe baseline 2001 examination. At the lumbar spine, there is an increase inbone density of 7.3 percent compared to 2008. The current measurement is not significantly changed from 2001. The patient's lowest bone measurement at a diagnostic region of interestis a T-score of -1.8 at the lumbar spine. This measurement is in the osteopenia category by WHO criteria. IMPRESSION: 1. The comparison to earlier measurements indicates an increase of bonedensity at the spine while the total hip measurement has decreased. In this agegroup, such a discrepancy is most commonly explained by the presence ofprogressive degenerative changes at the spine and possibley vascular calcifications. Benoit not see obvious vascular calcification on the leadite heater view, but there is adegree of scoliosis and some endplate sclerosis evident on the low quality imagewe have for evaluating the spine. While not diagnostic, the image doessuggest that this may be the explanation of the discordance between changes seenat the hip and spine. While it is not possible to know for sure, I suspect thatthe measured decrease at the hip is a more accurate reflection of overallchanges in bone mineral density in the this patient. 2. Bone mineral density is in the osteopenia category by WHO criteria. ESTIMATING FRACTURE RISK: The relationship between bone mineral density (BMD) and risk of fractureis well established. As BMD decreases, risk increases. Quantifying risk is difficult and is usually limited to estimation of the relative risk - aterm which may have limited value when trying to discuss an individual's risk. Estimating the absolute risk for a patient requires an understanding ofthe incidence rate in a given population and consideration of multiple,partially independent, risk factors in addition to BMD. The World Health Organization (WHO) has developed a fracture riskprediction tool that calculates a ten-year risk of major osteoporotic fracture basedon femoral neck bone density measurements and nine clinical risk factors for individuals who have not been treated for osteoporosis. This is available through an interactive web-based interface (http://www.shef.ac.uk/FRAX/)and can be used to estimate a given patient's absolute risk of majorosteoporotic fracture or hip fracture over the next 10 years. These estimates may prove useful when discussing risk with a patient. It is important, however, to understand the tool's limitations and how a given individual's risk might differ from the tool's estimate. The tool does not take into account the dose-response associated with most risk factors. For example, thesignificant increase in risk associated with multiple prior fractures compared to asingle prior fracture is not taken into account. Similarly, the location of aprevious fracture, the amount of glucocorticoids and number of cigarettes smokedare not considered. These limitations are discussed in a Frequently AskedQuestions section of the FRAX website which you are encouraged to review. DEXA data sheets with BMD measurements and plots are available in CIS under Radiology Images. Paper copies will be sent to providers without CIS access. If you have received this report without the data sheet and do not have access to CIS, please contact Radiology Research Biostatistician at [phone] Sunday thru Sunday 8am-4pm. Precious Hurtado MD IMG DEXA ORDERABLES from Last 3 Months or Most Recently Relevant to Health Maintenance Care Teams Ged Preparation Teacher Relationship Specialty Start Date End Date Unknown None PCP - General 07/04/22
--- OUTSIDE RECORDS SUMMARY | 2024-08-21 00:09 | XMS_ITS | Encounter Summary ---
Author Organization [facility] Address [address] [place] [id number] Care Team Providers Care Global Marketing Coordinator Name Role Phone Precious Hurtado MD Primary Care Provider [phone] Encounter Details Date Type Department Care Team (Late st Contact Info) Description 02/06/2023 Lab Requisition [facility] Pathology & Laboratory Medicine - [address] [id number] Outr Resulting Lab, Provider Social History Tobacco Use Types Packs/Day Years Used Date Smoking Tobacco: Never Assessed Comments Unknown Sex and Gender Information Value Date Recorded Sex Assigned at Not on file Legal Sex Female 17:57 EST Gender Identity Not on file Sexual Orientation Not on file documented as of this encounter Plan of Treatment Not on file documented as of this encounter Procedures Procedure Name Priority Date/Time Associated Diagnosis Comments LYME AB Routine 02/06/2023 15:00 EDT documented in this encounter Results * LYME AB (02/06/2023 15:00 EDT) Lyme Ab Negative Negative 02/07/2023 11:55 EDT [facility] Blood VENOUS BLOOD / Unknown 02/06/2023 15:00 EDT 02/06/2023 21:30 EDT us Provider Outr Resulting Lab IMMUNOLOGY AND SEROL OGY ORDERABLES Final Result [facility] [address] [place] [address] documented in this encounter Visit Diagnoses Not on filedocumented in this encounter Care Teams Global Marketing Coordinator Relationship Specialty Start Date End Date Precious Hurtado MD [address] [place] [address] [place] [address] PCP - General 07/02/15 documented as of this encounter
--- OUTSIDE RECORDS SUMMARY | 2024-08-21 00:09 | XMS_ITS | Encounter Summary ---
Author Organization [facility] [place] [address] Care Team Providers Care Parts Analyst Name Role Phone Precious Hurtado MD Primary Care Provider [phone] Encounter Details Date Type Department Care Team (Late st Contact Info) Description 07/15/2012 Ancillary Procedure Radiology Library at [facility] [place] [address] Beatriz Grissom DO [address] [place] [address] Social History Tobacco Use Types Packs/Day Years Used Date Smoking Tobacco: Never Assessed Sex and Gender Information Value Date Recorded Sex Assigned at Not on file Gender Identity Not on file Sexual Orientation Not on file documented as of this encounter Plan of Treatment Not on file documented as of this encounter Procedures Procedure Name Priority Date/Time Associated Diagnosis Comments FILM LIBRARY STORAGE ONLY MAMMO Routine 07/15/2012 12:00 AM EST documented in this encounter Results * Film Library- Storage Only Mammo (07/15/2012 12:00 AM EST) Narrative [facility] - 07/19/2022 5:30 PM EST This exam is auto-finalizing. It's purpose is for storage only. Beatriz Grissom DO IMG FILM LIBRARY O RDERABLES [facility] [place], [place] documented in this encounter Visit Diagnoses Not on filedocumented in this encounter Care Teams Parts Analyst Relationship Specialty Start Date End Date Precious Hurtado MD [address] [place] [address] PCP - General 07/19/10 12/21/16 documented as of this encounter
--- OUTSIDE RECORDS SUMMARY | 2024-08-21 00:09 | XMS_ITS | Encounter Summary ---
[place] [address] Care Team Providers Care Change Control Manager Name Role Phone Unknown Primary Care Provider Unavailabl e Reason for Referral * Consultation (Routine) - Closed Specialty Diagnoses / Procedures Referred By Yoel nugent Referred To Contact Hematology and Oncology Diagnoses Inconclusive mammogram Mammo CAT 1- SHOW HORSE DRIVER only Beatriz Grissom DO [address] [place] [address] [facility] [address] [place] [address] Referral ID Status Reason Start Date Expiration Date V isits Requested Visits Authorized [id number] Closed Consult, Test & Treat PCP Updated and/or Approved 07/19/2022 07/19/2023 6 6 Encounter Details Date Type Department Care Team (Latest Contact Info) Description 07/19/2022 Transcribe Orders eDH Incoming Referrals [phone] Beatriz Grissom DO [address] [place], [place] [id number] Inconclusive mammogram Social History Tobacco Use Types Packs/Day Years Used Date Smoking Tobacco: Unknown Smokeless Tobacco: Never Sex and Gender Information Value Date Recorded Sex Assigned at Not on file Gender Identity Not on file Sexual Orientation Not on file documented as of this encounter Plan of Treatment Scheduled Referrals Name Type Priority Associated Diagnoses Order Schedule Referral to Comprehensive Breast Program Outpatient Referral Routine Inconclusive mammogram Ordered: 07/19/2022 documented as of this encounter Visit Diagnoses Diagnosis Inconclusive mammogram documented in this encounter Care Teams Change Control Manager Relationship Specialty Start Date End Date Unknown None PCP - General 07/04/22 documented as of this encounter
--- OUTSIDE RECORDS SUMMARY | 2024-08-21 00:09 | XMS_ITS | Encounter Summary ---
Author Organization [facility] [place] [address] Care Team Providers Care Wearing Apparel Shaker Name Role Phone Stefani Alfonso MD Primary Care Provider [phone] Encounter Details Date Type Department Care Team (Late st Contact Info) Description 01/05/2021 Ancillary Procedure Radiology Library at [facility] [place] [address] Beatriz Grissom DO [address] [place], [place] [id number] Social History Tobacco Use Types Packs/Day Years [...] Comments FILM LIBRARY STORAGE ONLY MAMMO Routine 01/05/2021 12:00 AM EDT documented in this encounter Results * Film Library- Storage Only Mammo (01/05/2021 12:00 AM EDT) Narrative [facility] - 07/19/2022 5:28 PM EST This exam is auto-finalizing. It's purpose is for storage only. Beatriz B Krechetoff DO IMG FILM LIBRARY O RDERABLES DH RAD [place], [place] documented in this encounter Visit Diagnoses Not on filedocumented in this encounter Care Teams Wearing Apparel Shaker Relationship Specialty Start Date End Date Stefani Alfonso MD [address] [place] [address] PCP - General Family Medicine 12/22/16 07/11/21 documented as of this encounter
--- OUTSIDE RECORDS SUMMARY | 2024-08-21 00:09 | XMS_ITS | Encounter Summary ---
Author Organization [facility] [place] [address] Care Team Providers Care Dermatology Nurse Name Role Phone Burton Agosto MD Primary Care Provider [phone] Reason for Referral * Diagnostic Test (Routine) - Closed Specialty Diagnoses / Procedures Referred By Contac t Referred To Contact Cardiology Diagnoses Bradycardia Supraventricular tachycardia Hypertension, essential, benign Procedures Ziopatch 48 Hrs-15 Days Kavitha Reilly MD [facility] [place] [address] [facility] [place] [address] Referral ID Status Reason Start Date Expiration Date V isits Requested Visits Authorized [id number] Closed Specialty Service Requested 07/29/2021 01/27/2022 1 1 Reason for Visit * Diagnostic Test (Routine) - Closed Specialty Diagnoses / Procedures Referred By Contac t Referred To Contact Cardiology Diagnoses Bradycardia Supraventricular tachycardia Hypertension, essential, benign Procedures Ziopatch 48 Hrs-15 Days Kavitha Reilly MD [facility] [place] [address] [facility] [place] [address] Referral ID Status Reason Start Date Expiration Date V isits Requested Visits Authorized [id number] Closed Specialty Service Requested 07/29/2021 01/27/2022 1 1 Encounter Details Date Type Department Care Team (Latest Contact Info) Description 07/29/2021 6:56 AM EST - 07/29/2021 11:59 PM EST Hospital Encounter Non-[place] [address] Kavitha Reilly MD Bradycardia, unspecified; Supraventricular tachycardia; Hypertension, essential, benign; Bradycardia Discharge Disposition: Home Social History Tobacco Use Types Packs/Day Years Used Date Smoking Tobacco: Unknown Smokeless Tobacco: Never Sex and Gender Information Value Date Recorded Sex Assigned at Not on file Gender Identity Not on file Sexual Orientation Not on file documented as of this encounter Medications at Time of Discharge Medication Sig Dispensed Refills Start Date End Date losartan (Cozaar) 25 mg Tablet Take 1 tablet by mouth daily. 90 tablet 07/25/2021 hydroCHLOROthiazide (Hydrodiuril) 12.5 mg Tablet Take 12.5 mg by mouth daily. Not taking currently didn't feel well, would like to discuss 07/04/2021 calcium carbonate (CALCIUM 600 ORAL) Take 600 mg by mouth daily. vit C/E/zinc ox/dougie/lut/zeax (ICAPS AREDS2 ORAL) Take 1 capsule by mouth daily. estradioL (ESTRACE) 0.01 % (0.1 mg/gram) Cream Place 2 g vaginally once a week. dicyclomine (BENTYL) 10 mg capsule Take 10 mg by mouth as needed (She stated she has not used in years but has on hand). 09/18/2006 documented as of this encounter Plan of Treatment Not on file documented as of this encounter Procedures Procedure Name Priority Date/Time Associated Diagnosis Comments ZIOPATCH 48 HRS-15 DAYS Routine 07/29/2021 6:59 AM EST Bradycardia Supraventricular tachycardia Hypertension, essential, benign documented in this encounter Results * Ziopatch 48 Hrs-15 Days (07/29/2021 6:59 AM EST) Anatomical Region Laterality Modality Other Narrative 08/23/2021 4:18 PM EST [facility] ? Zio Patch? Ambulatory Cardiac Event Monitor Report Indication: bradycardia Duration of recording ? 12 days 19 hours Summary Data Predominant rhythm ? sinus rhythm Minimum sinus rate 52 bpm Maximum sinus rate 112 bpm Average heart rate 72 bpm Atrial fibrillation none Ectopic beats 2.1% atrial premature beats (APC? s) <1% ventricular premature beats (VPC's) 28 runs of SVT were detected with the longest being 11 seconds at 151 bpm No high grade ectopy Triggered and Patient Diary Events There were 1 triggered and 1 patient diary events: Skipped/irregular beats, lightheaded: sinus rhythm at 83 bpm Triggered event: sinus rhythm at 86 bpm with a PAC Conclusion(s): ?? 1) Predominant rhythm is sinus. 2) Symptoms occurred predominantly during sinus rhythm. 3) No sustained arrhythmias. Marques Valdez MD [facility] Cardiac Electrophysiology 08/23/2021 4:18 PM Kavitha Reilly MD CARDIAC SERVICES ORD ERABLES documented in this encounter Visit Diagnoses Diagnosis Bradycardia, unspecified Other specified cardiac dysrhythmias Supraventricular tachycardia Other specified cardiac dysrhythmias Hypertension, essential, benign Essential hypertension, benign documented in this encounter Care Teams Dermatology Nurse Relationship Specialty Start Date End Date Burton Agosto MD PCP - General Family Medicine 07/12/21 07/03/22 documented as of this encounter
--- OUTSIDE RECORDS SUMMARY | 2024-08-21 00:09 | XMS_ITS | Encounter Summary ---
Author Organization [facility] [place] [address] Care Team Providers Care Strategic Planning Manager Name Role Phone Burton Agosto MD Primary Care Provider [phone] Reason for Referral * Diagnostic Test (Routine) - Closed Specialty Diagnoses / Procedures Referred By Contac t Referred To Contact Diagnoses Bradycardia Supraventricular tachycardia Hypertension, essential, benign Procedures Echocardiogram Stress (Treadmill) Kavitha Valverde MD [facility] [place] [address] [facility] [place] [address] Referral ID Status Reason Start Date Expiration Date V isits Requested Visits Authorized [id number] Closed Specialty Service Requested 08/27/2021 08/26/2022 1 1 * Diagnostic Test (Routine) - Closed Specialty Diagnoses / Procedures Referred By Yoel nugent Referred To Contact Cardiology Diagnoses Bradycardia Supraventricular tachycardia Hypertension, essential, benign Procedures Ziopatch 48 Hrs-15 Days Kavitha Valverde MD [facility] [place] [address] [facility] [place] [address] Referral ID Status Reason Start Date Expiration Date V isits Requested Visits Authorized [id number] Closed Specialty Service Requested 07/29/2021 01/27/2022 1 1 Reason for Visit * Consultation (Routine) - Closed Specialty Diagnoses / Procedures Referred By Contdell t Referred To Contact Cardiology Diagnoses Bradycardia, unspecified Bradycardia, unspecified *SCANNED DOCS - URGENT Procedures came to us on the urgent line Stefani Alfonso MD [address] [place] [address] [facility] [address] [place] [phone] Referral ID Status Reason Start Date Expiration Date V isits Requested Visits Authorized [id number] Closed Consult, Test & Treat Connection Center PCP Updated and/or Approved 07/12/2021 07/12/2022 6 6 Encounter Details Date Type Department Care Team (Late st Contact Info) Description 07/25/2021 10:40 AM EST Office Visit Cardiology at [address] [phone] Kavitha Valverde MD Bradycardia, unspecified; Supraventricular tachycardia; Hypertension, essential, benign Social History Tobacco Use Types Packs/Day Years Used Date Smoking Tobacco: Unknown Smokeless Tobacco: Never Sex and Gender Information Value Date Recorded Sex Assigned at Not on file Gender Identity Not on file Sexual Orientation Not on file documented as of this encounter Last Filed Vital Signs Vital Sign Reading Time Taken Comments Blood Pressure 158/88 07/25/2021 10:21 AM EST Pulse 70 07/25/2021 10:21 AM EST Temperature - - Respiratory Rate - - Oxygen Saturation 99% 07/25/2021 10:21 AM EST Inhaled Oxygen Concentration - - Weight 76.4 kg (168 lb 6.4 oz) 07/25/2021 10:21 AM EST Height 162.6 cm (5' 4) 07/25/2021 10:21 AM EST Body Mass Index 28.91 07/25/2021 10:21 AM EST documented in this encounter Patient Instructions * Patient Instructions* Kavitha Valverde MD - 07/25/2021 10:40 AM EST Continue the low dose of HCTZ Start losartan 25 mg daily What should your blood pressure be? Optimal is < 120/80 But readings up to the low 130s/80 is reasonable. Occasionally you might have one out of range documented in this encounter Progress Notes * Kavitha Valverde MD - 07/25/2021 10:40 AM EST CARDIOLOGY OUTPATIENT CLINIC NOTE PRIMARY CARE PROVIDER: Burton Agosto MD REFERRING PROVIDER: Stefani Alfonso Patient ID: Ezio Madrigal is a 75 y.o. female. HPI: 07/25/21 URGENT CARDIOLOGY CLINIC APPOINTMENT for Bradycardia with history of Supraventricular Tachycardia She states that she went to see her PCP and and there was concern over her holter monitor. She alsohas an oxygen monitor that showed her heart rate was 31. She was diagnosed with SVT many years ago (she is not exactly sure but about 15+ years ago) and itcomes and goes but she was never treated for this. She has not been told that she had any other heart problems. Her father had some issues and was on medications She has eason out spells when shehas episodes of rapid heart rate. She will have episodes of rapid HR several times a week, but last about one second. Longer episodes (less common) is a couple minutes. She explains that she feels her HR rises (ie. Slowly ramping up). She has never been given metoprolol. She has one cup coffee inthe morning, seldom has any other caffeine. She had chest pressure but she felt it was musculoskeletal and took a Tums and felt better. This may happen a couple times over a year's period. Her breathing is good. She has indoor bike and elliptical (3 times a week 20-25 minutes) and active outdoors (1-2 miles of walking but now just 1/2 mile aweek with the day daily). She has never actually fainted. 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 She lives with her and dog (Arthur Grewal) They have four grown children, two live near (one across the road, another down the road) and one in [place] and one in [facility]. She had normal pregnancies. She also had normalmenopause. She does not smoke. Rare alcohol. 07/25/21 EKG Normal sinus 71 Compared to 07/04/21 Sinus at 74 Low voltgage 07/05/21 holter X 48 hours (outside study) uremarkable PROBLEM LIST: Problem List: 2021-06: Bradycardia, unspecified MEDICATIONS: Current Outpatient Medications Medication Sig Dispense Refill ??? hydroCHLOROthiazide (Hydrodiuril) 12.5 mg Tablet Take 12.5 mg by mouth daily. Not taking currently didn't feel well, would like to discuss ??? calcium carbonate (CALCIUM 600 ORAL) Take 600 mg by mouth daily. ??? vit C/E/zinc ox/dougie/lut/zeax (ICAPS AREDS2 ORAL) Take 1 capsule by mouth daily. ??? estradioL (ESTRACE) 0.01 % (0.1 mg/gram) Cream Place 2 g vaginally once a week. ??? dicyclomine (BENTYL) 10 mg capsule Take 10 mg by mouth as needed (She stated she has not used in years but has on hand). (Patient taking differently: Take 10 mg by mouth as needed (She stated shehas not used in years but has on hand).) No current facility-administered medications for this visit. Subjective: Review of Systems Constitutional: Negative for malaise/fatigue and weight gain. Cardiovascular: Negative for chest pain, claudication, cyanosis, dyspnea on exertion, irregular heartbeat, leg swelling, near-syncope, orthopnea, palpitations, paroxysmal nocturnal dyspnea and syncope. Respiratory: Negative for shortness of breath and sleep disturbances due to breathing. Hematologic/Lymphatic: Does not bruise/bleed easily. Musculoskeletal: Negative for back pain, falls, joint pain and myalgias. Genitourinary: Negative for frequency. Neurological: Negative for dizziness, light-headedness and loss of balance. Psychiatric/Behavioral: Negative for altered mental status and memory loss. Social History: Social History Socioeconomic History ??? Marital status: Spouse name: Not on file ??? Number of children: Not on file ??? Years of education: Not on file ??? Highest education level: Not on file Occupational History ??? Not on file Tobacco Use ??? Smoking status: Unknown If Ever Smoked ??? Smokeless tobacco: Never Used Substance and Sexual Activity ??? Alcohol use: Not on file ??? Drug use: Not on file ??? Sexual activity: Not on file Other Topics Concern ??? Not on file Social History Narrative ??? Not on file Social Determinants of Health Financial Resource Strain: Not on file Food Insecurity: Not on file Transportation Needs: Not on file Physical Activity: Not on file Housing Stability: Not on file Objective: Physical Exam Constitutional: Appearance: She is well-developed. Neck: Vascular: No JVD. Cardiovascular: Rate and Rhythm: Normal rate and regular rhythm. Heart sounds: Normal heart sounds. Pulmonary: Effort: Pulmonary effort is normal. Breath sounds: Normal breath sounds. Skin: General: Skin is warm and dry. Neurological: Mental Status: She is alert and oriented to person, place, and time. Psychiatric: Behavior: Behavior normal. Patient Vitals for the past 24 hrs: Pulse BP SpO2 07/25/21 1021 70 158/88 99 % No results found for this or any previous visit (from the past 72 hour(s)). Assessment and Plan: No problem-specific Assessment & Plan notes found for this encounter. Lipids ?? No recent lipid panel, will order this. She is not on lipid therapy Blood pressure ?? She takes this at home, there is a lot of variation in her home readings with some at goal and others up to 160 systolic ?? HCTZ 12.5 started by her PCP. I am adding losartan 25 mg daily History of SVT ?? She describes having episodes of rapid heart beats and also slow HR (to 30s) by her wearable device ?? She will have a 14-day ziopatch ?? Will not start beta kae at this time Overall cardiac status ?? She has chest pain although her description is not entirely consistent with that of angina. I would like to know her cardiac function and also feel it is reasonable to evaluate for ischemia. She will have a stress echocardiogram Time spent for this clinic appointment on the date of service includes: 1) [id number] counseling as noted above 2) reviewing past medical records, cardiac testing, results of laboratory testing 3) coordinating care with other physicians and allied health care providers Kavitha Valverde MD, Jovan, FACC, FNLA Attending Video Game Producer Sports [facility] Program Preventive Cardiology Lipid Clinic Advanced Hypertension Clinic documented in this encounter Plan of Treatment Not on file documented as of this encounter Procedures Procedure Name Priority Date/Time Associated Diagnosis Comments EKG 12-LEAD Routine 07/25/2021 10:28 AM EST Bradycardia, unspecified documented in this encounter Results * STRESS ECHO W LMTD SPEC DOPP COLOR DOPP (11/07/2021 12:34 PM EDT) EF 60 HEARTLAB SYSTEM Anatomical Region Laterality Modality Other 11/07/2021 11:2 4 AM EDT Narrative 11/07/2021 1:20 PM EDT ?[facility] ? [facility] ?[address] ? [place], [place] [address] ?Voice: ?Fax: ? Exercise Stress Echocardiogram Report Name: EZIO MADRIGAL ?Study Date: 11/07/2021 11:24 AM ? Patient Location: : 1945 ? Height: 163 cm ? Account: [id number] Age: 76 yrs ? Weight: 76 kg Gender: Female ?BSA: 1.8 m2 Ordering Physician: KAVITHA VALVERDE Referring Physician: KAVITHA VALVERDE Performed By: Ingrid Gonzalez RDCS Reason For Study: Abnormal EKG Exam Location: [facility]. Interpretation Summary CLINICAL: Patient exercised on Jaxon protocol for 5:59 mins, obtaining 7 METs. Baseline HR of 77 ced to 146 at peak stress, representing 100% MPHR. Resting BP of 138/86 ced to 178/80 at peak exertion. No chest pain reported; exercise stopped due to dyspnea. EKG: Baseline EKG demonstrates normal sinus rhythm without significant ST-TW aberration. There were no diagnostic ischemic EKG changes with exertion or recovery. At peak HR the patient developed what look like frequent PACs. ECHO: Rest echocardiogram demonstrates normal global and regional function, with a visually estimated EF of 60%. At peak exertion, there is vigorous and equal recruitment of all bedolla. See remainder of report for additional findings. CONCLUSION: Normal stress test on clinical, electrocardiographic, and echocardiographic parameters. Consider long term care administrator monitoring to evaluate of PACs vs atrial tachycardia. Stress Results ? Maximum Predicted HR: ?? 145 bpm ? Target HR: 123 bpm ?% Maximum Predicted HR: 97 % ?Stage ??DurationHeart Rate ??BP ? (mm:ss) ?? (bpm) ? Rest ?77 ?138/82 ? Stage 1 ?? 3:00 ? 104 ?140/82 ? Stage 2 ?? 2:59 ? 141 ?178/80 ? Recovery ?90 ?152/80 ? Stress Duration: ?? 5:59 mm:ss ? Maximum Stress HR: 141 bpm ? METS: 7 Procedure Type of Stress Test: Jaxon protocol. The patient's oxygen saturation at peak stress was 97%. The patient's blood pressure was normal with exercise. The patient reported chest discomfort. The patient achieved 7 METs. The patient reported no chest discomfort. The study was terminated because of dyspnea. Left Ventricle Left ventricle is of normal size. Wall thickness is mildly increased. Left ventricular systolic function is normal. Left ventricular ejection fraction is estimated visually at 60%. There are no segmental wall motion abnormalities. There is Grade I LV diastolic dysfunction (abnormal relaxation with normal left ventricular filling pressure). Right Ventricle The right ventricle is of normal size. Right ventricular systolic function is normal. RVSP could not be obtained due to inadequate TR jet. Left Atrium The left atrium is normal. Right Atrium The right atrium is normal. Aortic Valve The aortic valve is structurally normal. The aortic valve is tricuspid. The aortic valve is mildly thickened. There is no aortic stenosis. There is no aortic regurgitation. Mitral Valve The mitral valve is structurally normal. Mild thickening of the mitral leaflets. There is no mitral stenosis. There is mild mitral regurgitation. Tricuspid Valve The tricuspid valve is structurally normal. There is trace tricuspid regurgitation. Great Vessels The aortic root is of normal size. No abnormalities are identified. Ascending aorta is normal in size. Effusion There is no pericardial effusion. Rest ECG/Medications The baseline ECG displays normal sinus rhythm. DAMIEN inhibitor or ARB. Diuretic. Stress ECG There was no new ST segment depression with stress. The patient's oxygen saturation during stress was 98%. Arrhythmia induced during stress: PAC. Stress Echo The left ventricular ejection fraction is hyperdynamic at peak exercise. There was normal augmentation of all left ventricular wall segments post exercise. Recovery Isolated PAC's. Patient demonstrated PVC . ? 2D Measurements ? Volumes ?IVSd: 1.4 cm ? LA Volume Index: ?LVIDd: 3.3 cm ? 22.8 ml/m2 ?LVIDs: 2.8 cm ?LVPWd: 1.3 cm ?LV mass(C)d: 152.4 grams ?LV mass(C)dI: 84.0 grams/m2 ?Ao root diam: 3.1 cm ?Ao root diam index: 1.7 ?asc Aorta Diam: 3.0 cm ?TAPSE_phl: 2.3 cm Doppler Ao V2 VTI: 30.3 cm Ao valve max: 9.2 mmHg Ao valve mean: 5.0 mmHg MV E max tim: 80.2 cm/sec MV A max tim: 115.0 cm/sec MV E/A: 0.70 MV dec time: 0.31 sec Lat Peak E' Tim: 8.5 cm/sec E/ e' (lat): 9.5 Med Peak E' Tim: 5.8 cm/sec E/e' (med): 13.9 E/e' Average: 11.7 Dimensionless index Aov: 0.81 I ?WMSI = 1.00 ? % Normal = 100 II ?WMSI = 1.00 ? % Normal = 100 ?Segments ??Size X - Cannot ?? 1 - Normal ?? 2 - ? 3 - Akinetic 4 - ?1-2 ? small Interpret ? Hypokinetic ?Dyskinetic ?? 3-5 ? moderate 5 - ? 6-14 ?large Aneurysmal ?15-16 ?? diffuse Procedure Note Rj Thompson MD - 11/07/2021 [place] [address] Voice: Fax: Exercise Stress Echocardiogram Report Name: EZIO MADRIGAL Study Date: :24 AM Patient Location: : 1945 Height: 163 cm Account: [id number] Age: 76 yrs Weight: 76 kg Gender: Female BSA: 1.8 m2 Ordering Physician: KAVITHA VALVERED Referring Physician: KAVITHA VALVERDE Performed By: Ingrid Gonzalez RDCS Reason For Study: Abnormal EKG Exam Location: [facility]. Interpretation Summary CLINICAL: Patient exercised on Jaxon protocol for 5:59 mins, obtaining 7METs. Baseline HR of 77 ced to 146 at peak stress, representing 100% MPHR.Resting BP of 138/86 ced to 178/80 at peak exertion. No chest pain reported;exercise stopped due to dyspnea. EKG: Baseline EKG demonstrates normal sinus rhythm without significantST-TW aberration. There were no diagnostic ischemic EKG changes with exertionor recovery. At peak HR the patient developed what look like frequent PACs. ECHO: Rest echocardiogram demonstrates normal global and regionalfunction, with a visually estimated EF of 60%. At peak exertion, there is vigorous andequal recruitment of all bedolla. See remainder of report for additionalfindings. CONCLUSION: Normal stress test on clinical, electrocardiographic, and echocardiographic parameters. Consider fdc monitoring to evaluate ofPACs vs atrial tachycardia. Stress Results Maximum Predicted HR: 145 bpm Target HR: 123 bpm % Maximum Predicted HR: 97 % Stage DurationHeart Rate BP (mm:ss) (bpm) Rest 77 138/82 Stage 1 3:00 104 140/82 Stage 2 2:59 141 178/80 Recovery 90 152/80 Stress Duration: 5:59 mm:ss Maximum Stress HR: 141 bpm METS: 7 Procedure Type of Stress Test: Jaxon protocol. The patient's oxygen saturation atpeak stress was 97%. The patient's blood pressure was normal with exercise. Thepatient reported chest discomfort. The patient achieved 7 METs. The patientreported no chest discomfort. The study was terminated because of dyspnea. Left Ventricle Left ventricle is of normal size. Wall thickness is mildly increased.Left ventricular systolic function is normal. Left ventricular ejectionfraction is estimated visually at 60%. There are no segmental wall motionabnormalities. There is Grade I LV diastolic dysfunction (abnormal relaxation with normalleft ventricular filling pressure). Right Ventricle The right ventricle is of normal size. Right ventricular systolic functionis normal. RVSP could not be obtained due to inadequate TR jet. Left Atrium The left atrium is normal. Right Atrium The right atrium is normal. Aortic Valve The aortic valve is structurally normal. The aortic valve is tricuspid.The aortic valve is mildly thickened. There is no aortic stenosis. There is noaortic regurgitation. Mitral Valve The mitral valve is structurally normal. Mild thickening of the mitralleaflets. There is no mitral stenosis. There is mild mitral regurgitation. Tricuspid Valve The tricuspid valve is structurally normal. There is trace tricuspid regurgitation. Great Vessels The aortic root is of normal size. No abnormalities are identified.Ascending aorta is normal in size. Effusion There is no pericardial effusion. Rest ECG/Medications The baseline ECG displays normal sinus rhythm. DAMIEN inhibitor or ARB.Diuretic. Stress ECG There was no new ST segment depression with stress. The patient's oxygen saturation during stress was 98%. Arrhythmia induced during stress: PAC. Stress Echo The left ventricular ejection fraction is hyperdynamic at peak exercise.There was normal augmentation of all left ventricular wall segments post exercise. Recovery Isolated PAC's. Patient demonstrated PVC . 2D Measurements Volumes IVSd: 1.4 cm LA VolumeIndex: LVIDd: 3.3 cm 22.8 ml/m2 LVIDs: 2.8 cm LVPWd: 1.3 cm LV mass(C)d: 152.4 grams LV mass(C)dI: 84.0 grams/m2 Ao root diam: 3.1 cm Ao root diam index: 1.7 asc Aorta Diam: 3.0 cm TAPSE_phl: 2.3 cm Doppler Ao V2 VTI: 30.3 cm Ao valve max: 9.2 mmHg Ao valve mean: 5.0 mmHg MV E max tim: 80.2 cm/sec MV A max tim: 115.0 cm/sec MV E/A: 0.70 MV dec time: 0.31 sec Lat Peak E' Tim: 8.5 cm/sec E/ e' (lat): 9.5 Med Peak E' Tim: 5.8 cm/sec E/e' (med): 13.9 E/e' Average: 11.7 Dimensionless index Aov: 0.81 I WMSI = 1.00 % Normal = 100 II WMSI = 1.00 % Normal = 100 SegmentsSize X - Cannot 1 - Normal 2 - 3 - Akinetic 4 - 1-2small Interpret Hypokinetic Dyskinetic 3-5moderate 5 - 6-14large Aneurysmal 15-16diffuse Kavitha Valverde MD ECHO ORDERABLES * Ziopatch 48 Hrs-15 Days (07/29/2021 6:59 AM EST) Anatomical Region Laterality Modality Other Narrative 08/23/2021 4:18 PM EST [facility] ? Zio Patch? Ambulatory Cardiac Event Monitor [...] [facility] Cardiac Electrophysiology 08/23/2021 4:18 PM Kavitha Valverde MD CARDIAC SERVICES ORD ERABLES * EKG 12 Lead (07/25/2021 10:28 AM EST) Ventricular rate 71 BPM MUSE SYSTEM Atrial Rate 71 BPM MUSE SYSTEM P-R Interval 162 ms MUSE SYSTEM QRS Duration 78 ms MUSE SYSTEM Q-T Interval 392 ms MUSE SYSTEM QTC Calculated (Bezet) 425 ms MUSE SYSTEM Calculated P [place] 48 degrees MUSE SYSTEM Calculated R [place] 20 degrees MUSE SYSTEM Calculated T [place] 18 degrees MUSE SYSTEM INTERPRETATION Normal sinus rhythm Normal ECG No previous ECGs available Confirmed by MD COSTA, RJ ([id number]) on 07/25/2021 2:13:37 PM MUSE SYSTEM 07/25/2021 10:2 8 AM EST 07/25/2021 2:13 PM EST Kavitha Valverde MD ECG ORDERABLES MUSE SYSTEM documented in this encounter Visit Diagnoses Diagnosis Bradycardia, unspecified Other specified cardiac dysrhythmias Supraventricular tachycardia Other specified cardiac dysrhythmias Hypertension, essential, benign Essential hypertension, benign Bradycardia, unspecified Other specified cardiac dysrhythmias Supraventricular tachycardia Other specified cardiac dysrhythmias Hypertension, essential, benign Essential hypertension, benign Bradycardia, unspecified Other specified cardiac dysrhythmias Supraventricular tachycardia Other specified cardiac dysrhythmias Hypertension, essential, benign Essential hypertension, benign documented in this encounter Care Teams Strategic Planning Manager Relationship Specialty Start Date End Date Burton Agosto MD PCP - General Family Medicine 07/12/21 07/03/22 documented as of this encounter
--- OUTSIDE RECORDS SUMMARY | 2024-08-21 00:09 | XMS_ITS | Encounter Summary ---
Author Organization [facility] [place] [address] Care Team Providers Care Trim Crew Supervisor Name Role Phone Stefani Alfonso MD Primary Care Provider [phone] Reason for Visit * Reason Comments Skin Check Encounter Details Date Type Department Care Team (Late st Contact Info) Description 12/22/2016 10:45 AM EDT Office Visit Dermatology at [facility] [address] [place] [address] Tanna Arenas MD [facility] DR GERRI MONTES [place] [address] Benign nevus; Seborrheic dermatitis of scalp; Submental fat deposit; Inflamed seborrheic keratosis Social History Tobacco Use Types Packs/Day Years Used Date Smoking Tobacco: Unknown Sex and Gender Information Value Date Recorded Sex Assigned at Not on file Gender Identity Not on file Sexual Orientation Not on file documented as of this encounter Patient Instructions * Patient Instructions* Jackelyn Gamez - 12/22/2016 10:45 AM EDT Seborrheic Keratoses You have been diagnosed today with Seborrheic Keratosis (SK). These are benign (non-cancerous) growths that can occur almost anywhere on the skin. They are very common. SKs can often be mistaken for a wart or a mole. SKs are usually brown, but can range in color from light tellez to black. They can measure anywhere from a fraction of an inch to larger than a half-dollar. One distinguishing feature of an SK is that they usually have a waxy, eqlop-rv-lzq-skin appearance.They have been referred to as barnacles of life, because they resemble the barnacles stuck to a ship. Although it is unclear what causes an SK to develop, it is certain that they are not contagious. SKs do have the tendency to run in families. Unless irritated, SKs do not require treatment. However, do seek an appointment if an SK starts to grow rapidly, turns black, or bleeds. You were treated today with Liquid Nitrogen. This is the most common treatment for an irritated SK.Liquid nitrogen is extremely cold, and freezes the surface of the skin, causing the lesion to flakeoff. Treatment with liquid nitrogen can be uncomfortable, but discomfort should subside after a couple of hours. The area treated will look red and irritated, and it may blister up or turn dark, thenfall off. This is normal! You do not need and special treatment for the area, but you may find cold compresses and/or a lightapplication of Vaseline soothing. For best results, do not rub or pick at the healing lesion. Expected healing time is 3-4 weeks. Please contact the clinic at [phone] if the lesion has not fully resolved after 6 weeks. If you are calling after hours, please call the mainline at [phone] and ask for the motorized squad commanding officer office administration. documented in this encounter Progress Notes * Tanna Arenas MD - 12/22/2016 10:45 AM EDT Images from the original note were not included. DERMATOLOGY ESTABLISHED PATIENT CLINIC NOTE Date of service: 12/22/2016 Bea Madrigal : 1945 Provider: Tanan Arenas MD Chief Complaint Patient presents with ??? Skin Check SKIN HISTORY: seborrheic keratosis Benign nevus HPI Bea Madrigal is a 71 y.o. year old female. Presents to clinic today for a full skin exam. Patient was last seen by me on 05/07/2015. She mentions she has noticed scaly spots on the scalp. Also noted is a long standing brown spot (SK) on the left lower eyelid area, asymptomatic. Would like this removed. Long standing mole on right lower back; would like checked. Has not noticed any changes. ADR: No Known Allergies MEDS: Current Outpatient Prescriptions Medication Sig Dispense Refill ??? CIS Free Text Med - [place] 3-Vitamin E-Fish Oil ??? Calcium Carbonate 600 mg (1.5 gram) Chew ??? dicyclomine (BENTYL) 10 mg capsule ??? ciprofloxacin (CIPRO) 500 mg tablet 500mg, PO, Twice daily ??? scopolamine (TRANSDERM-SCOP) 1.5 mg 1.5MG/72h = 1 Patch(es), TD, q 3 days prn No current facility-administered medications for this visit. ROS General: feeling well Skin: denies other skin complaints EXAM General: NAD, pleasant, cooperative Skin: Patient was asked to disrobe to the level of their comfort. A total body skin exam except forthe genitalia was performed. This includes examination of the skin of the face, ears, neck, chest, axillae, left and right upper and lower extremities, hands, feet, abdomen, back, and buttocks. The genitalia, perineum, and perianal areas were not examined. Significant skin findings: A. Left lower eyelid: 0.4 cm pink-brown papules/plaque with waxy stuck on appearance. Verbal consent was given today to obtain and chart today's photo. Photo taken by Chantell Barger Scribezequiel. Photo taken post LN2 treatment. B. Back: 1 x 0.6 cm medium brown evenly shaped evenly pigmented macule. Regular pigment pattern on dermoscopy. C. No visible evidence of scale present. Heme-crusted papules noted on the scalp D. Submental fullness ASSESSMENT/PLAN: A. Seborrheic keratoses - Treated for diagnostic confirmation (no charge to patient) Procedure Note: Procedure: Destruction of lesion with cryotherapy. Number: 1 Location: as above Discussed procedure and expectations including risks (including risk of hypopigmentation) and benefits. Verbal consent obtained. Frozen with LN2, 15-30 second thaw time, ONCE. There were no complications; the patient tolerated the procedure well. Post-procedure expectations and wound care were reviewed. - Recheck in 6 weeks B. Benign appearing nevus with even pigmentation and well defined margins are noted. - Patient reassured C. Favor Seborrheic dermatitis on scalp - I advised the use of OTC anti-dandruff shampoo. D. Submental fullness - Will refer to Dr. James King for a cosmetic consult should patient wish to have a consultation. FOLLOW UP: 6 weeks to recheck lesion A, sooner if needed. Patient scheduled upon exiting. Patient instructed to call with questions or concerns. I am documenting this encounter acting as the scribe for and in the presence of Dr. Arenas.: Mayela Jefferson LPN and Jackelyn Gamez, Clinical Scribe I performed the above scribed service and agree with the accuracy of the documentation in this encounter. Tanna Arenas MD Section of Dermatology [facility] documented in this encounter Plan of Treatment Not on file documented as of this encounter Visit Diagnoses Diagnosis Benign nevus Benign neoplasm of skin, site unspecified Seborrheic dermatitis of scalp Other seborrheic dermatitis Submental fat deposit Localized adiposity Inflamed seborrheic keratosis documented in this encounter Care Teams Trim Crew Supervisor Relationship Specialty Start Date End Date Stefani Alfonso MD [address] [place] [address] PCP - General Family Medicine 12/22/16 07/11/21 documented as of this encounter
--- OUTSIDE RECORDS SUMMARY | 2024-08-21 00:09 | XMS_ITS | Encounter Summary ---
[place] [address] Care Team Providers Care Work Order Clerk Name Role Phone Unknown Primary Care Provider Unavailabl e Encounter Details Date Type Department Care Team (Latest Contact Info) Description 09/18/2022 Travel Social History Tobacco Use Types Packs/Day Years Used Date Smoking Tobacco: Unknown Smokeless Tobacco: Never Sex and Gender Information Value Date Recorded Sex Assigned at Not on file Gender Identity Not on file Sexual Orientation Not on file documented as of this encounter Plan of Treatment Not on file documented as of this encounter Visit Diagnoses Not on filedocumented in this encounter Care Teams Work Order Clerk Relationship Specialty Start Date End Date Unknown None PCP - General 07/04/22 documented as of this encounter
--- OUTSIDE RECORDS SUMMARY | 2024-08-21 00:09 | XMS_ITS | Encounter Summary ---
Author Organization [facility] [place] [address] Care Team Providers Care Hedis Abstractor Name Role Phone Precious Hurtado MD Primary Care Provider [phone] Encounter Details Date Type Department Care Team (Late st Contact Info) Description 09/05/2013 Ancillary Procedure Radiology Library at [facility] [place] [address] Beatriz Grissom DO [address] [place] [address] Social History Tobacco Use Types Packs/Day Years [...] Comments FILM LIBRARY STORAGE ONLY MAMMO Routine 09/05/2013 12:00 AM EST documented in this encounter Results * Film Library- Storage Only Mammo (09/05/2013 12:00 AM EST) Narrative [facility] - 07/19/2022 5:30 PM EST This exam is auto-finalizing. It's purpose is for storage only. Beatriz Grissom DO IMG FILM LIBRARY O RDERABLES DH RAD [place], [place] documented in this encounter Visit Diagnoses Not on filedocumented in this encounter Care Teams Hedis Abstractor Relationship Specialty Start Date End Date Precious Hurtado MD [address] [place] [address] PCP - General 07/19/10 12/21/16 documented as of this encounter
--- OUTSIDE RECORDS SUMMARY | 2024-08-21 00:09 | XMS_ITS | Encounter Summary ---
[place] [address] Care Team Providers Care Concrete Stone Finisher Name Role Phone Burton Agosto MD Primary Care Provider [phone] Encounter Details Date Type Department Care Team (Late st Contact Info) Description 07/14/2021 Telephone Cardiology at [address] [address] Kiah Michael LNA Social History Tobacco Use Types Packs/Day Years Used Date Smoking Tobacco: Unknown Smokeless Tobacco: Never Sex and Gender Information Value Date Recorded Sex Assigned at Not on file Gender Identity Not on file Sexual Orientation Not on file documented as of this encounter Miscellaneous Notes * Telephone Encounter - Kiah Michael LNA - 07/20/2021 9:35 AM EST All medications and allergies have been updated for clinic visit with Dr. Reilly on 07/25. documented in this encounter Plan of Treatment Not on file documented as of this encounter Visit Diagnoses Not on filedocumented in this encounter Care Teams Concrete Stone Finisher Relationship Specialty Start Date End Date Burton Agosto MD PCP - General Family Medicine 07/12/21 07/03/22 documented as of this encounter
--- OUTSIDE RECORDS SUMMARY | 2024-08-21 00:09 | XMS_ITS | Encounter Summary ---
[place] [address] Care Team Providers Care Network Security Engineer Name Role Phone Unknown Primary Care Provider Unavailabl e Encounter Details Date Type Department Care Team (Latest Contact Info) Description 09/19/2022 Travel Social History Tobacco Use Types Packs/Day [...] on filedocumented in this encounter Care Teams Network Security Engineer Relationship Specialty Start Date End Date Unknown None PCP - General 07/04/22 documented as of this encounter
--- OUTSIDE RECORDS SUMMARY | 2024-08-21 00:09 | XMS_ITS | Encounter Summary ---
Author Organization [facility] [place] [address] Care Team Providers Care Computer Language Coder Name Role Phone Stefani Alfonso MD Primary Care Provider [phone] Encounter Details Date Type Department Care Team (Late st Contact Info) Description 02/16/2017 Ancillary Procedure Radiology Library at [facility] [place] [address] Beatriz Grissom DO [address] [place], [place] [id number] Social History Tobacco Use Types Packs/Day Years [...] Comments FILM LIBRARY STORAGE ONLY MAMMO Routine 02/16/2017 12:00 AM EDT documented in this encounter Results * Film Library- Storage Only Mammo (02/16/2017 12:00 AM EDT) Narrative [facility] - 07/19/2022 5:29 PM EST This exam is auto-finalizing. It's purpose is for storage only. Beatriz Grissom DO IMG FILM LIBRARY O RDERABLES DH [place], [place] documented in this encounter Visit Diagnoses Not on filedocumented in this encounter Care Teams Computer Language Coder Relationship Specialty Start Date End Date Stefani Alfonso MD [address] [place] [address] PCP - General Family Medicine 12/22/16 07/11/21 documented as of this encounter
--- OUTSIDE RECORDS SUMMARY | 2024-08-21 00:09 | XMS_ITS | Encounter Summary ---
Author Organization [facility] Address [address] [place] [address] Care Team Providers Care Director Of Infection Prevention Name Role Phone Unavailable Primary Care Provider Unavailabl e Encounter Details Date Type Department Care Team (Late st Contact Info) Description 04/19/2007 Results Only [facility] - [facility] [address] [place] [address] Precious Hogan MD [address] [place] [address] Social History Tobacco Use Types Packs/Day Years [...] Procedure Name Priority Date/Time Associated Diagnosis Comments CYTOPATHOLOGY Routine 04/19/2007 0:00 EDT documented in this encounter Results * CYTOPATHOLOGY (04/19/2007 0:00 EDT) Pathology Report: CYTOPATHOLOGY REPORT Reports generated via electronic interface contain original data; however they are lacking the format of the original report. Caution should be taken when reading/interpreti ng unformatted reports. Name: ? EZIO MADRIGAL ? Accession #: ? [id number] : ? 1945 (Age: 61) ??F ?Collect Date: ? 04/19/2007 Location: ? [facility] ? Receive Date: ? 04/23/2007 Provider: ?PRECIOUS HOGAN MD Copy to: ? Specimen/Source: ?ThinPrep Pap Test, Cervix/Endocervix, processed on Boundary ThinPrep Imaging System, with manual evaluation Last Menstrual Period: ? Menstrual/Pregnanc y Status: ? Post Menopausal Other: ? HPVA - HPV testing requested if ASC-US on the current ThinPrep Pap test. ? SPECIMEN ADEQUACY ? Satisfactory for Evaluation - transformation zone component absent GENERAL CATEGORIZATION ? Negative for Intraepithelial Lesion or Malignancy ? Document reviewed and electronically signed by: ? HEATHER Sy(ASCP) ? Report Date: ??04/25/2007 14:26 End of Report [facility] 04/19/2007 04/23/2007 us Precious Hogan MD PATHOLOGY ORDERABLES Final Re sult [facility] [address] [place] [address] documented in this encounter Visit Diagnoses Not on filedocumented in this encounter
--- OUTSIDE RECORDS SUMMARY | 2024-08-21 00:09 | XMS_ITS | Encounter Summary ---
Author Organization [facility] [place] [address] Care Team Providers Care Hair Worker Name Role Phone Precious Hurtado MD Primary Care Provider [phone] Encounter Details Date Type Department Care Team (Late st Contact Info) Description 11/11/2014 Ancillary Procedure Radiology Library at [facility] [place] [place] [address] Beatriz Grissom DO [address], [place] [id number] Social History Tobacco Use Types Packs/Day Years [...] Comments FILM LIBRARY STORAGE ONLY MAMMO Routine 11/11/2014 12:00 AM EDT documented in this encounter Results * Film Library- Storage Only Mammo (11/11/2014 12:00 AM EDT) Narrative [facility] - 07/19/2022 5:29 PM EST This exam is auto-finalizing. It's purpose is for storage only. Beatriz Grissom DO IMG FILM LIBRARY O RDERABLES DH RAD [place], [place] documented in this encounter Visit Diagnoses Not on filedocumented in this encounter Care Teams Hair Worker Relationship Specialty Start Date End Date Precious Hurtado MD [address] [place] [address] PCP - General 07/19/10 12/21/16 documented as of this encounter
--- OUTSIDE RECORDS SUMMARY | 2024-08-21 00:09 | XMS_ITS | Encounter Summary ---
Author Organization [facility] Address [facility] [place] [address] Care Team Providers Care Home Theatre Technician Name Role Phone Precious Hurtado MD Primary Care Provider Encounter Details Date Type Department Care Team (Latest Contact Info) Description 06/26/2011 12:20 PM EDT - 06/26/2011 11:59 PM EDT Hospital Encounter XRay at [address] [place] [address] CLINIC, Precious Mccarthy MD [address] [place] [address] Discharge Disposition: Home Social History Tobacco Use Types Packs/Day Years Used Date Smoking Tobacco: Never Assessed Sex and Gender Information Value Date Recorded Sex Assigned at Not on file Gender Identity Not on file Sexual Orientation Not on file documented as of this encounter Medications at Time of Discharge Medication Sig Dispensed Refills Start Date End Date dicyclomine (BENTYL) 10 mg capsule Take 10 mg by mouth as needed (She stated she has not used in years but has on hand). 09/18/2006 CIS Free Text Med - [place] 3-Vitamin E-Fish Oil 09/18/2006 021 Calcium Carbonate 600 mg (1.5 gram) Chew 09/18/2006 07/20/2021 ciprofloxacin (CIPRO) 500 mg tablet 500mg, PO, Twice daily 09/18/2006 07/20/2021 scopolamine (TRANSDERM-SCOP) 1.5 mg 1.5MG/72h = 1 Patch(es), TD, q 3 days prn 09/18/2006 07/20/2021 documented as of this encounter Plan of Treatment Not on file documented as of this encounter Procedures Procedure Name Priority Date/Time Associated Diagnosis Comments DXA CENTRAL SPINE, HIP, AND/OR WHOLE BODY (GENERIC) Routine 06/26/2011 1:09 PM EDT documented in this encounter Results * DEXA CENTRAL-SPINE, HIP, AND/OR WHOLE [...] bone density of 7.3 percent compared to 2008. [...] not see obvious vascular calcification on the carpenter maintenance view, but there is a degree of [...] have access to CIS, please contact Radiology Oracle Technical Developer at [phone] Sunday thru Sunday 8am-4pm. Procedure Note Rick [...] not see obvious vascular calcification on the carpenter maintenance view, but there is adegree of scoliosis [...] have access to CIS, please contact Radiology Oracle Technical Developer at [phone] Sunday thru Sunday 8am-4pm. Precious Hurtado MD IMG DEXA ORDERABLES documented in this encounter Visit Diagnoses Not on filedocumented in this encounter Care Teams Home Theatre Technician Relationship Specialty Start Date End Date Precious Hurtado MD [address] [place] [address] PCP - General 07/19/10 12/21/16 documented as of this encounter
--- OUTSIDE RECORDS SUMMARY | 2024-08-21 00:09 | XMS_ITS | Encounter Summary ---
Author Organization [facility] Address [address] [place] [address] Care Team Providers Care Fence Erector Name Role Phone Unavailable Primary Care Provider Unavailabl e Encounter Details Date Type Department Care Team (Late st Contact Info) Description 06/01/2011 Results Only [facility] Laboratory Services - [facility] ([facility] [address] [place], [place] [id number] Precious Hogan MD [address] [place] [address] Social History Tobacco Use Types Packs/Day [...] Procedure Name Priority Date/Time Associated Diagnosis Comments PAP TEST- RESULT ONLY Routine 06/01/2011 0:00 EDT documented in this encounter Results * PAP TEST- RESULT ONLY (06/01/2011 0:00 EDT) Pathology Report: CYTOPATHOLOGY REPORT Reports generated via electronic interface contain original data; however they are lacking the format of the original report. Caution should be taken when reading/interpreti ng unformatted reports. Name: ? EZIO MADRIGAL ? Accession #: ? [id number] ? : ? 1945 (Age: 65) ??F ?Collect Date: ? 06/01/2011 ? Location: ? [facility] ? Receive Date: ? 06/02/2011 ? Provider: PRECIOUS HOGAN MD Copy to: ? Final Report SPECIMEN ADEQUACY ? Satisfactory for Evaluation - transformation zone component present GENERAL CATEGORIZATION ? Negative for Intraepithelial Lesion or Malignancy ?? Menstural/Pregnanc y Status: ??Post Menopausal Specimen/Source: ??Pap Test, Cervix/Endocervix, ThinPrep Imaging System with manual evaluation Document reviewed and electronically signed by: ? YESICA Cardona(ASCP) ? Report ??Date: 06/09/2011 07:15 HPV with Pap Test ? Date Ordered: ? 06/09/2011 ? Status: ?? Signed Out ?Date Complete: ? 06/13/2011 ? By: ??System Interface ? Date Reported: ? 06/13/2011 ? Interpretation RESULT: Negative for HPV types 16, 18, 31, 33, 35, 39, 45, 51, 52, 56, 58, 59, and 68. Comments Document reviewed and electronically signed by: ? System Interface ? Report date: 06/13/2011 By the signature above, the attending physician certifies that he/she has personally conducted a gross and/or microscopic examination of the described specimens and rendered or confirmed the above diagnosis. End of Report [facility] 06/01/2011 06/02/2011 us Precious Hogan MD PATHOLOGY ORDERABLES Final Re sult Performing Organization Address City/State/[facility] Co de Phone Number [facility] [address] [place] [address] documented in this encounter Visit Diagnoses Not on filedocumented in this encounter
--- OUTSIDE RECORDS SUMMARY | 2024-08-21 00:09 | XMS_ITS | Encounter Summary ---
Author Organization [facility] [place] [address] Care Team Providers Care Nail Feeder Name Role Phone Stefani Alfonso MD Primary Care Provider [phone] Reason for Visit * Reason Comments Skin Check Encounter Details Date Type Department Care Team (Late st Contact Info) Description 04/25/2017 1:45 PM EDT Office Visit Dermatology at [address] [address] Tanna Arenas MD [facility] DR GER[address] [place] [address] Nevus Social History Tobacco Use Types Packs/Day Years Used Date Smoking Tobacco: Unknown Smokeless Tobacco: Never Sex and Gender Information Value Date Recorded Sex Assigned at Not on file Gender Identity Not on file Sexual Orientation Not on file documented as of this encounter Progress Notes * Tanna Arenas MD - 04/25/2017 1:45 PM EDT Images from the original note were not included. DERMATOLOGY ESTABLISHED PATIENT CLINIC NOTE Date of service: 04/25/2017 Bea Madrigal : 1945 Provider: Tanna Arenas MD Chief Complaint Patient presents with ??? Skin Check SKIN HISTORY: seborrheic keratosis Benign nevus Seborrheic dermatitis HPI Bea Madrigal is a 71 y.o. year old female. Presents to clinic today for a focused exam to the face. At last appointment an seborrheic keratosis treated with cryotherapy and since has resolved. Wouldalso like spot on back checked. Lifelong. recently questioned if lesion had changed in texture. ADR: No Known Allergies MEDS: Current Outpatient Prescriptions Medication Sig Dispense Refill ??? CIS Free Text Med - [place] 3-Vitamin E-Fish Oil ??? Calcium Carbonate 600 mg (1.5 gram) Chew ??? dicyclomine (BENTYL) 10 mg capsule ??? ciprofloxacin (CIPRO) 500 mg tablet 500mg, PO, Twice daily ??? scopolamine (TRANSDERM-SCOP) 1.5 mg 1.5MG/72h = 1 Patch(es), TD, q 3 days prn No current facility-administered medications for this visit. ROS General: feeling well Skin: denies other skin complaints EXAM General: NAD, pleasant, cooperative Skin: A focused exam of the back and face was performed Significant skin findings: A. Left lower eyelid: clear skin on exam B. Right lateral back: 1.2 cm x 0.7 cm medium brown thin plaque with patchy reticular pigment network Verbal consent was given today to obtain and chart today's photo. Photo taken by Tanna Arenas MD ASSESSMENT/PLAN: Resolved seborrheic keratosis s/p LN2 - Discussed benign nature of lesion and provided reassurance. No treatment necessary at this time. B. Nevus; benign appearing - Will recheck at follow up. Patient instructed to return to clinic for re- evaluation of area if notes change, growth, bleeding, etc. FOLLOW UP: November 2017 for full skin exam, sooner if needed. Route to Radha Man for scheduling. Patient instructed to call with questions or concerns. I am documenting this encounter acting as the scribe for and in the presence of Dr. Arenas.: Mayela Jefferson LPN and Jackelyn Gamez, Clinical Scribe I performed the above scribed service and agree with the accuracy of the documentation in this encounter. Tanna Arenas MD Section of Dermatology [facility] documented in this encounter Plan of Treatment Not on file documented as of this encounter Visit Diagnoses Diagnosis Nevus Benign neoplasm of skin, site unspecified documented in this encounter Care Teams Nail Feeder Relationship Specialty Start Date End Date Stefani Alfonso MD [address] [place] [address] PCP - General Family Medicine 12/22/16 07/11/21 documented as of this encounter
--- OUTSIDE RECORDS SUMMARY | 2024-08-21 00:09 | XMS_ITS | Encounter Summary ---
Author Organization [facility] [place] [address] Care Team Providers Care Laborer Bituminous Paving Name Role Phone Stefani Alfonso MD Primary Care Provider [phone] Encounter Details Date Type Department Care Team (Late st Contact Info) Description 12/26/2016 Telephone Dermatology at [facility] [address] [place] [address] Pina King MD [facility] [address] [address] Social History Tobacco Use Types Packs/Day Years Used Date Smoking Tobacco: Unknown Sex and Gender Information Value Date Recorded Sex Assigned at Not on file Gender Identity Not on file Sexual Orientation Not on file documented as of this encounter Miscellaneous Notes * Telephone Encounter - Riaz Lockhart - 12/26/2016 4:08 PM EDT Called patient to see if she would like to schedule appt for submental fullness. Patient declines at this time. * Telephone Encounter - Riaz Lockhart - 12/26/2016 4:07 PM EDT ----- Message from Mayela Jefferson LPN sent at 12/22/2016 11:11 AM EDT ----- Submental fullness-referral to RL documented in this encounter Plan of Treatment Not on file documented as of this encounter Visit Diagnoses Not on filedocumented in this encounter Care Teams Laborer Bituminous Paving Relationship Specialty Start Date End Date Stefani Alfonso MD [address] [place] [address] PCP - General Family Medicine 12/22/16 07/11/21 documented as of this encounter
--- OUTSIDE RECORDS SUMMARY | 2024-08-21 00:09 | XMS_ITS | Encounter Summary ---
Author Organization [facility] [place] [address] Care Team Providers Care Car Jockey Name Role Phone Precious Hurtado MD Primary Care Provider Encounter Details Date Type Department Care Team (Late st Contact Info) Description 02/14/2016 Ancillary Procedure Radiology Library at [facility] [place] [address] Beatriz Grissom DO [address] [id number] Social History Tobacco Use Types Packs/Day Years [...] Comments FILM LIBRARY STORAGE ONLY MAMMO Routine 02/14/2016 12:00 AM EDT documented in this encounter Results * Film Library- Storage Only Mammo (02/14/2016 12:00 AM EDT) Narrative [facility] - 07/19/2022 5:29 PM EST This exam is auto-finalizing. It's purpose is for storage only. Beatriz Grissom DO IMG FILM LIBRARY O RDERABLES DH RAD [place], [place] documented in this encounter Visit Diagnoses Not on filedocumented in this encounter Care Teams Car Jockey Relationship Specialty Start Date End Date Precious Hurtado MD [address] [place] [address] PCP - General 07/19/10 12/21/16 documented as of this encounter
--- OUTSIDE RECORDS SUMMARY | 2024-08-21 00:09 | XMS_ITS | Encounter Summary ---
[place] [address] Care Team Providers Care Engine Repairer Service Name Role Phone Burton Agosto MD Primary Care Provider [phone] Encounter Details Date Type Department Care Team (Late st Contact Info) Description 11/08/2021 Telephone Cardiology at [address] [phone] Kavitha Reilly MD Social History Tobacco Use Types Packs/Day Years Used Date Smoking Tobacco: Unknown Smokeless Tobacco: Never Sex and Gender Information Value Date Recorded Sex Assigned at Not on file Gender Identity Not on file Sexual Orientation Not on file documented as of this encounter Miscellaneous Notes * Telephone Encounter - Kavitha Reilly MD - 11/08/2021 2:52 PM EDT I called to let her know that her echocardiogram was unremarkable She will have a f/u appt where we will review in detail. I was only able to leave a message documented in this encounter Plan of Treatment Not on file documented as of this encounter Visit Diagnoses Not on filedocumented in this encounter Care Teams Engine Repairer Service Relationship Specialty Start Date End Date Burton Agosto MD PCP - General Family Medicine 07/12/21 07/03/22 documented as of this encounter
--- OUTSIDE RECORDS SUMMARY | 2024-08-21 00:09 | XMS_ITS | Encounter Summary ---
Author Organization [facility] Address [address] [place] [address] Care Team Providers Care Spiral Spring Winder Name Role Phone Unavailable Primary Care Provider Unavailabl e Encounter Details Date Type Department Care Team (Late st Contact Info) Description 04/23/2008 Before PRISM Converted Visit (Maple) [facility] - Maple conversion [address] [place] [address] Precious Hurtado MD [address] [place] [address] [place], [place] [id number] Social History Tobacco Use Types Packs/Day Years [...] Procedure Name Priority Date/Time Associated Diagnosis Comments HPV DETECTION, HIGH RISK TYPES Routine 04/23/2008 8:03 EDT CYTOPATHOLOGY Routine 04/23/2008 0:00 EDT documented in this encounter Results * HUMAN PAPILLOMA VIRUS DNA TEST (04/23/2008 8:03 EDT) Specimen Description Cervix, ThinPrep vial [facility] Result Negative for HPV types 16, 18, 31, 33, 35, 39, 45, 51, 52, 56, 58, 59, and 68. [facility] Report Status Final [id number] [facility] 04/23/2008 8:03 EDT 05/01/2008 8:03 EDT us Precious Hurtado MD MICROBIOLOGY - GENERAL AUGUSTINEA BLES Final Result [facility] [address] [place] [address] * CYTOPATHOLOGY (04/23/2008 0:00 EDT) Pathology Report: CYTOPATHOLOGY REPORT ? Reports generated via electronic interface contain original data; ? however they are lacking the format of the original report. ? Caution should be taken when reading/interpreti ng unformatted reports. ? Name: ? EZIO MADRIGAL ? Accession #: ? [id number] ? : ? 1945 (Age: 62) ??F ?Collect Date: ? 04/23/2008 ? Location: ? [facility] ? Receive Date: ? 04/28/2008 ? Provider: ?PRECIOUS ERISMAN MD ? Copy to: ? Specimen/Source: ?ThinPrep Pap Test, Cervix/Endocervix, processed on [employer] ThinPrep Imaging System, with manual evaluation ? Last Menstrual Period: ? Menstrual/Pregnanc y Status: ? Post Menopausal ? Other: ? HPVDX - HPV testing requested regardless of diagnosis on current ThinPrep Pap ?? test. ? SPECIMEN ADEQUACY ? Satisfactory for Evaluation ? - transformation zone component absent ? GENERAL CATEGORIZATION ? Negative for Intraepithelial Lesion or Malignancy ? Document reviewed and electronically signed by: ? Lynan Florin, CT(ASCP) ? Report Date: ??04/30/2008 11:02 ? End of Report ? [facility] 04/23/2008 04/28/2008 us Precious Hurtado MD PATHOLOGY ORDERABLES Final Re sult [facility] [address] [place] [address] documented in this encounter Visit Diagnoses Not on filedocumented in this encounter
--- OUTSIDE RECORDS SUMMARY | 2024-08-21 00:09 | XMS_ITS | Encounter Summary ---
Author Organization [facility] Justine [place] [address] Care Team Providers Care Inspector Toys Name Role Phone Stefani Alfonso MD Primary Care Provider [phone] Encounter Details Date Type Department Care Team (Late st Contact Info) Description 10/08/2019 Ancillary Procedure Radiology Library at [facility] [place] [address] Beatriz Grissom DO [address] [place], [place] [id number] Social History Tobacco Use Types Packs/Day Years [...] Comments FILM LIBRARY STORAGE ONLY MAMMO Routine 10/08/2019 12:00 AM EST documented in this encounter Results * Film Library- Storage Only Mammo (10/08/2019 12:00 AM EST) Narrative [facility] - 07/19/2022 5:28 PM EST This exam is auto-finalizing. It's purpose is for storage only. Beatriz B Krechetoff DO IMG FILM LIBRARY O RDERABLES DH RAD [place], [place] documented in this encounter Visit Diagnoses Not on filedocumented in this encounter Care Teams Inspector Toys Relationship Specialty Start Date End Date Stefani Alfonso MD [address] [place] [address] PCP - General Family Medicine 12/22/16 07/11/21 documented as of this encounter
--- OUTSIDE RECORDS SUMMARY | 2024-08-21 00:09 | XMS_ITS | Encounter Summary ---
Author Organization [facility] Address [address] [place] [address] Care Team Providers Care Librarian Helper Name Role Phone Unavailable Primary Care Provider Unavailabl e Encounter Details Date Type Department Care Team (Late st Contact Info) Description 10/12/2004 Results Only [facility] - Maple conversion [address] [place] [address] Omid Morales MD [address] [place] [phone] Social History Tobacco Use Types Packs/Day Years [...] Procedure Name Priority Date/Time Associated Diagnosis Comments SURGICAL PATHOLOGY Routine 10/12/2004 0:00 EST documented in this encounter Results * SURGICAL PATHOLOGY (10/12/2004 0:00 EST) Pathology Report: SURGICAL PATHOLOGY REPORT Reports generated via electronic interface contain original data; however they are lacking the format of the original report. Caution should be taken when reading/interpreti ng unformatted reports. Name: ? EZIO MADRIGAL ? Accession #: ? [id number] ? : ? 1945 (Age: 59) ??F ? Collect Date: ? 10/12/2004 ? Location: ? [facility] ? Receive Date: ? 10/12/2004 ? Provider: YURI MORALES MD Copy to: ETELVINA CID MD ? Final Pathologic Diagnosis: A. ?Stomach, biopsy: 1. ?Antral mucosa with mild chronic gastritis and reactive changes. B. ?Gastroesophageal junction, biopsy: ? 1. ?? Squamous mucosa with reactive changes suggestive of chronic esophagitis. ??See comment. Comment: ? The biopsy from the esophagus shows some hyperplasia of the basal cells as well as elongation of the papillae. ??Although no significant inflammation is identified, these features are consistent with reflux esophagitis. ??(Dr. Franco)/[facility] Document reviewed and electronically signed by: KYARA FRANCO MD Report ??Date: 10/14/2004 07:47 By the signature above, the attending physician certifies that he/she has personally conducted a gross and/or microscopic examination of the described specimens and rendered or confirmed the above diagnosis. Specimen(s) Received: A. ?Bx of antrum (#1) B. ?Bx of G.E. junction (#2) Clinical History: ? HH, gastritis, duodenitis Gross Description: ? Received in Hollande's fixative labelled [place] and bx of antrum of stomach is a tellez-pink 0.2 x 0.2 x 0.2 cm soft tissue fragment. ??The specimen is entirely submitted as (A). Received in Hollande's fixative labelled [place] and bx of GE junction are two tellez-pink irregular soft tissue fragments measuring 0.2 x 0.2 x 0.1 cm and 0.2 x 0.2 x 0.2 cm. ??The specimen is entirely submitted as (B). ??(Tianna Cash)/[facility] End of Report [facility] 10/12/2004 10/12/2004 15: 12 EST us Omid Morales MD PATHOLOGY ORDERABLES Final Res ult [facility] [address] [place] [address] documented in this encounter Visit Diagnoses Not on filedocumented in this encounter
--- OUTSIDE RECORDS SUMMARY | 2024-08-21 00:09 | XMS_ITS | Encounter Summary ---
Author Organization [facility] [place] [address] Care Team Providers Care Binding Nicker Name Role Phone Unknown Primary Care Provider Unavailabl e Encounter Details Date Type Department Care Team (Late st Contact Info) Description 07/06/2022 Ancillary Procedure Radiology Library at [facility] [place] [address] Beatriz Grissom, [address] [place] [address] Social History Tobacco Use Types Packs/Day Years [...] Comments FILM LIBRARY STORAGE ONLY MAMMO Routine 07/06/2022 12:00 AM EST documented in this encounter Results * Film Library- Storage Only Mammo (07/06/2022 12:00 AM EST) Narrative RAD - 07/19/2022 5:28 PM EST This exam is auto-finalizing. It's purpose is for storage only. Beatriz Grissom DO IMG FILM LIBRARY O RDERABLES [place], [place] documented in this encounter Visit Diagnoses Not on filedocumented in this encounter Care Teams Binding Nicker Relationship Specialty Start Date End Date Unknown None PCP - General 07/04/22 documented as of this encounter
--- OUTSIDE RECORDS SUMMARY | 2024-08-21 00:09 | XMS_ITS | Encounter Summary ---
Author Organization [facility] [place] [address] Care Team Providers Care Change Booth Attendant Name Role Phone Unknown Primary Care Provider Unavailabl e Reason for Visit * Consultation (Routine) - Closed Specialty Diagnoses / Procedures Referred By Yoel nugent Referred To Contact Hematology and Oncology Diagnoses Inconclusive mammogram Mammo CAT 1- GROUP MANAGER only Beatriz Grissom, DO [address] [place] [address] [facility] [address] [place] [address] Referral ID Status Reason Start Date Expiration Date V isits Requested Visits Authorized [id number] Closed Consult, Test & Treat PCP Updated and/or Approved 07/19/2022 07/19/2023 6 6 Encounter Details Date Type Department Care Team (Late st Contact Info) Description 09/19/2022 1:00 PM EST Office [place] [address] Cecilia Bolaños APRN [facility] [place] [address] Breast cancer screening other than mammogram Social History Tobacco Use Types Packs/Day Years Used Date Smoking Tobacco: Unknown Smokeless Tobacco: Never Sex and Gender Information Value Date Recorded Sex Assigned at Not on file Gender Identity Not on file Sexual Orientation Not on file documented as of this encounter Progress Notes * Cecilia Bolaños, HAND KNITTER - 09/19/2022 1:00 PM EST Images from the original note were not included. Patient ID: Bea Madrigal is a 76 y.o. female who seen at the request of Dr. Grissom to discuss screening recommendations in light of dense breast tissue on mammogram. HPI: Bea had a normal mammogram in June that was read as category B- scattered areas of fibroglandular breast tissue. She is wondering if she should have supplemental screening with an MRI. She is generally healthy. No family history of breast or ovarian cancer. Her mother had a hysterectomy which she thinks was due to endometrial cancer. At today's visit, she denies any skin changes, new breast masses, breast trauma, or prior breast surgery. No nipple discharge or pain in either breast. She denies any headaches or significant weight changes. No new chest pain or difficulty breathing. No new bony pain or tenderness. She has no new or concerning complaints of fatigue, cardiovascular, or respiratory symptoms. All other ROS are negative. Imaging performed: bilateral mammogram at [facility] on 07/06/22 was interpreted as BI-RADS Category 1 with scattered areas of fibroglandular density She does not have a history of cystic breast tissue and have not had cysts aspirated or breast biopsies in the past. She does perform self-breast exams. Breast Cancer Risk Factors: History Age at delivery of first child 20 yo Breast fed Yes Menarche age 14 yo LMP 56 yo Hormonal contraceptive use: No Hormone replacement therapy No Family history of breast cancer No Family history of ovarian cancer No Known genetic mutation Not tested Hx Ashkenazi Jew heritage? No Previous breast biopsy? No Previous radiation to chest? No Social Hx: She is retired. She does not smoke; ETOH - rare Past Medical Hx: Macular degeneration, IBS Past Surgical Hx: Cholecystectomy Physical Exam: General appearance: Alert, well-appearing, well-developed, well-nourished; in no acute distress. Skin: Warm and dry. Head: Normocephalic, atraumatic Neck: Soft and supple without masses or adenopathy. Breasts: Both breasts appear normal. No suspicious masses, tenderness, dimpling, erythema, or otherskin changes in either breast. No nipple discharge or other nipple changes. No palpable axillary lymph nodes bilaterally. I feel no obvious discrete or dominant masses in either breast. Musculoskeletal: Full ROM in upper extremities without lymphedema. Neurological: Alert and oriented x 4. Mood is euthymic and appropriate to the situation. Assessment: Clinical breast exam without notable masses, skin changes, dimpling, or nipple discharge. Density levels are described using the BI-RADS system and are noted by the radiologist on a mammogram: ?? Extremely dense breast tissue - indicates that nearly all of the breast tissue is dense; approximately 1 in 10 women. ?? Heterogeneously dense - indicates there are some areas of non dense tissue, but the majority of the breast tissue is dense; approximately 4 in 10 women. ?? Scattered areas of fibroglandular density - indicates that there are some areas of scattered density, but the majority of the breast tissue is non dense; approximately 4 in 10 women. ?? Fatty replaced tissue - the breast tissue is mostly composed of fat; approximately 1 in 10 women. I explained to Bea that she had category B density. This is not considered high risk and she has no other high risk concerns in terms of lifestyle and familial. Screening MRI has a high rate of false positives and is a more invasive test. Plan: I have discussed my assessment and recommendations with Ms. Madrigal to include occasional self-breastexams and annual clinical breast exams. I am reassured that their breast exam is normal. She shouldcontinue yearly mammogram as long as she feels she has 10 years of life. Nonpharmacologic measures to help decrease your risk of developing breast cancer include the following: ?? Get at least 30 minutes of moderate intensity physical activity above normal activity on most days of the week to reduce the risk of chronic disease in adulthood. Walking is a good choice. You also may want to do other activities, such as running, swimming, cycling, playing tennis, or other teamsports. ?? Do strength training exercises at least twice a week to maintain muscle and bone health. ?? Drink alcohol in moderation, if at all. That means no more than 1 drink a day for women or 2 perday for men. ?? Make healthy eating choices: fruits and vegetables, lean protein, and healthy fats. Minimize processed foods, simple carbohydrates, sugars, and artificial sweeteners. ?? Maintain or achieve a healthy weight. Normal BMI < 25 for individuals under 65 years old; 22-30 for > 65 years old. ?? I recommend vitamin d 1,000 iu daily. All questions were answered to the patient's satisfaction and they state understanding and agreement with today's treatment plan. They are encouraged to follow up sooner if they develop any new or concerning symptoms. Cecilia Bolaños APRN Surgical Oncology P [phone] F [phone] [facility] documented in this encounter Plan of Treatment Scheduled Referrals Name Type Priority Associated Diagnoses Order Schedule Referral to Comprehensive Breast Program Outpatient Referral Routine Inconclusive mammogram Ordered: 07/19/2022 documented as of this encounter Visit Diagnoses Diagnosis Breast cancer screening other than mammogram documented in this encounter Care Teams Change Booth Attendant Relationship Specialty Start Date End Date Unknown None PCP - General 07/04/22 documented as of this encounter
--- OUTSIDE RECORDS SUMMARY | 2024-08-21 00:09 | XMS_ITS | Encounter Summary ---
Author Organization [facility] [place] [address] Care Team Providers Care Meteorologist In Charge Name Role Phone Burton Agosto MD Primary Care Provider [phone] Reason for Referral * Diagnostic Test (Routine) - Closed Specialty Diagnoses / Procedures Referred By Contac t Referred To Contact Diagnoses Bradycardia Supraventricular tachycardia Hypertension, essential, benign Procedures Echocardiogram Stress (Treadmill) Kavitha Valverde MD [facility] [place] [address] [facility] [place] [address] Referral ID Status Reason Start Date Expiration Date V isits Requested Visits Authorized [id number] Closed Specialty Service Requested 08/27/2021 08/26/2022 1 1 Reason for Visit * Diagnostic Test (Routine) - Closed Specialty Diagnoses / Procedures Referred By Yoel nugent Referred To Contact Diagnoses Bradycardia Supraventricular tachycardia Hypertension, essential, benign Procedures Echocardiogram Stress (Treadmill) Kavitha Valverde MD [facility] [place] [address] [facility] [place] [address] Referral ID Status Reason Start Date Expiration Date V isits Requested Visits Authorized [id number] Closed Specialty Service Requested 08/27/2021 08/26/2022 1 1 Encounter Details Date Type Department Care Team (Latest Contact Info) Description 11/07/2021 11:00 AM EDT - 11/07/2021 11:59 PM EDT Hospital Encounter Non-Invasive [place] [address] Kavitha Valverde MD Bradycardia, unspecified; Supraventricular tachycardia; [...] Procedure Name Priority Date/Time Associated Diagnosis Comments STRESS ECHO W LMTD SPEC DOPP COLOR DOPP Routine 11/07/2021 12:34 PM EDT Bradycardia Supraventricular tachycardia Hypertension, essential, benign documented in this encounter Results * STRESS ECHO W LMTD SPEC DOPP COLOR DOPP (11/07/2021 12:34 PM EDT) EF 60 HEARTLAB SYSTEM Anatomical Region Laterality Modality Other 11/07/2021 11:2 4 AM EDT Narrative 11/07/2021 1:20 PM EDT ?[facility] ?[address] ? [place] [address] ?Voice: ?Fax: ? Exercise Stress Echocardiogram Report Name: YOHANAJulioEZIO ?Study Date: 11/07/2021 11:24 AM ? Patient Location: 4A : 1945 ? Height: 163 cm ? Account: [id number] Age: 76 yrs ? Weight: 76 kg Gender: Female ?BSA: 1.8 m2 Ordering Physician: KAVITHA VALVERDE Referring Physician: KAVITHA VALVERDE Performed By: Ingrid Gonzalez RDCS Reason For Study: Abnormal EKG Exam Location: [facility]. Interpretation Summary CLINICAL: Patient exercised on Jaxon [...] on clinical, electrocardiographic, and echocardiographic parameters. Consider fpc monitoring to evaluate of PACs vs atrial [...] ?large Aneurysmal ?15-16 ?? diffuse Procedure Note Kvng Thompson MD - 11/07/2021 [address] [place] [address] Voice: Fax: Exercise Stress Echocardiogram Report Name: OLINDA EZIO Higginbotham Study Date: 1:24 AM Patient Location: : 1945 Height: 163 cm Account: [id number] Age: 76 yrs Weight: 76 kg Gender: Female BSA: 1.8 m2 Ordering Physician: KAVITHA VALVERDE Referring Physician: KAVITHA VALVERDE Performed By: Ingrid Gonzalez RDCS Reason For Study: Abnormal EKG Exam Location: [facility]. Interpretation Summary CLINICAL: Patient exercised on Jaxon [...] on clinical, electrocardiographic, and echocardiographic parameters. Consider regional intermodal truck driver monitoring to evaluate ofPACs vs atrial tachycardia. [...] Aneurysmal 15-16diffuse Kavitha Valverde MD ECHO ORDERABLES documented in this encounter Visit Diagnoses Diagnosis Bradycardia, unspecified Other specified cardiac dysrhythmias Supraventricular tachycardia Other specified cardiac dysrhythmias Hypertension, essential, benign Essential hypertension, benign documented in this encounter Care Teams Meteorologist In Charge Relationship Specialty Start Date End Date Burton Agosto MD PCP - General Family Medicine 07/12/21 07/03/22 documented as of this encounter
--- OUTSIDE RECORDS SUMMARY | 2024-08-21 00:09 | XMS_ITS | Encounter Summary ---
Author Organization [facility] [place] [address] Care Team Providers Care Patternmaker Wood Name Role Phone Precious Hurtado MD Primary Care Provider [phone] Reason for Visit * Reason Comments Skin Lesion Encounter Details Date Type Department Care Team (Late st Contact Info) Description 05/07/2015 11:30 AM EDT Follow-Up Dermatology at [facility] [address] [place] [address] Tanna Arenas MD [facility] [address] [place] [address] SK (seborrheic keratosis); Benign nevus Discharge Disposition: Home Social History Tobacco Use Types Packs/Day Years Used Date Smoking Tobacco: Never Assessed Sex and Gender Information Value Date Recorded Sex Assigned at Not on file Gender Identity Not on file Sexual Orientation Not on file documented as of this encounter Progress Notes * Tanna Arenas MD - 05/07/2015 11:29 AM EDT DERMATOLOGY SPOT-CHECK Date of service: 05/07/2015 Bea Madrigal : 1945 Provider: Tanna Arenas MD PROBLEM: Spot to check Chief Complaint Patient presents with ??? Skin Lesion SKIN HX: None Father h/o unknown skin cancer Son eczema HPI Bea Madrigal is a 69 y.o. year old female, new to me and to dermatology. She has a spot next to her left eye that is getting bigger and darker. She has had it for may years and did have it checked by Dr. Witt years ago and he said it was benign. Would also like mole on back checked. Has also been evaluated elsewhere and thought to be benign. It is stable per patient without any changes. Seen for one spot-check at this appointment. Knows this is a one-spot check clinic only. Knows willneed to make appointment for full skin check if desired or to have other areas checked. ADR: No Known Allergies MEDS: Current Outpatient Prescriptions Medication Sig Dispense Refill ??? CIS Free Text Med - Rupert 3-Vitamin E-Fish Oil ??? Calcium Carbonate 600 mg (1.5 gram) Chew ??? dicyclomine (BENTYL) 10 mg capsule ??? ciprofloxacin (CIPRO) 500 mg tablet 500mg, PO, Twice daily ??? scopolamine (TRANSDERM-SCOP) 1.5 mg 1.5MG/72h = 1 Patch(es), TD, q 3 days prn No current facility-administered medications for this visit. ROS General: feeling well EXAM A focused skin exam of the concerning spot was performed. General: NAD, pleasant, cooperative Focused exam of skin: Left lower eyelid Skin findings: A. Left lower eyelid: 0.4 cm pink-brown papules/plaque with waxy stuck on appearance. B. Back: 1 x 0.6 cm medium brown evenly shaped evenly pigmented macule. Regular pigment pattern on dermoscopy. ASSESSMENT/PLAN: A. Seborrheic keratosis ?? Discussed benign nature of lesion and provided reassurance. No treatment necessary at this time. ?? Discussed treating with LN2. Patient informed that this procedure is considered cosmetic and would not be covered by insurance, Patient quoted $100. ?? Patient will call should she wish to proceed with treatment. B. Benign appearing nevus with even pigmentation and well defined margins are noted. ?? Patient reassured Follow up: Return to clinic in PRN, or sooner if needed. Patient instructed to call with questions or concerns. I am documenting this encounter acting as the scribe for and in the presence of Dr. Arenas.: Jackelyn Gamez, Clinical Scribe I performed the above scribed service and agree with the accuracy of the documentation in this encounter. Tanna Arenas MD Section of Dermatology [facility] documented in this encounter Plan of Treatment Not on file documented as of this encounter Visit Diagnoses Diagnosis SK (seborrheic keratosis) Other seborrheic keratosis Benign nevus Benign neoplasm of skin, site unspecified documented in this encounter Care Teams Patternmaker Wood Relationship Specialty Start Date End Date Precious Hurtado MD [address] [place] [address] PCP - General 07/19/10 12/21/16 documented as of this encounter
--- OUTSIDE RECORDS SUMMARY | 2024-08-21 00:09 | XMS_ITS | Encounter Summary ---
Author Organization [facility] [address] Care Team Providers Care Jewel Corner Brushing Machine Operator Name Role Phone Burton Agosto MD Primary Care Provider [phone] Reason for Visit * Consultation (Routine) - Closed Specialty Diagnoses / Procedures Referred By Contac t Referred To Contact Cardiology Diagnoses Bradycardia, unspecified Bradycardia, unspecified *SCANNED DOCS - URGENT Procedures came to us on the urgent line Stefani Alfonso MD [address] [place] [id number] [facility] [address] [place] [phone] Referral ID Status Reason Start Date Expiration Date V isits Requested Visits Authorized [id number] Closed Consult, Test & Treat Connection Center PCP Updated and/or Approved 07/12/2021 07/12/2022 6 6 Encounter Details Date Type Department Care Team (Late st Contact Info) Description 11/21/2021 9:40 AM EDT Office Visit Cardiology at [address] [phone] Kavitha Reilly MD Bradycardia, unspecified; Hypertension, essential, benign; Encounter for screening for lipid disorder Social History Tobacco Use Types Packs/Day Years [...] Mass Index 28.73 11/21/2021 9:20 AM EDT documented in this encounter Progress Notes * Kavitha Reilly MD - 11/21/2021 9:40 AM EDT CARDIOLOGY OUTPATIENT CLINIC NOTE PRIMARY CARE PROVIDER: Burton Agosto MD REFERRING PROVIDER: Burton Agosto Patient ID: Bea Madrigal is a 76 y.o. female. HPI: 11/21/21 07/25/21 URGENT CARDIOLOGY CLINIC APPOINTMENT For Bradycardia with history of Supraventricular Tachycardia She [...] another down the road) and one in [place] and one in [facility]. She had normal pregnancies. She also had normalmenopause. She does not smoke. Rare alcohol. 07/25/21 EKG Normal sinus 71 Compared to 07/04/21 Sinus at 74 Low voltgage 11/07/20 Echocardiogram stress test CLINICAL: Patient exercised on Jaxon protocol for [...] echocardiographic parameters. Consider fdc monitoring to evaluate of PACs vs atrial tachycardia. Isidro July 2021 Duration of recording - 12 days 19 hours ??Predominant rhythm - sinus rhythm ??Minimum sinus rate 52 bpm Maximum sinus rate 112 bpm ??Average heart rate 72 bpm ??Atrial fibrillation none ??Ectopic beats ?? 2.1% atrial premature beats (APC???s) <1% ventricular premature beats (VPC's) ??28 runs of SVT were detected with the longest being 11 seconds at 151 bpm ??No high grade ectopy ??Triggered and Patient Diary Events ??There were 1 triggered and 1 patient diary events: Skipped/irregular beats, lightheaded: sinus rhythm at 83 bpm ??Triggered event: sinus rhythm at 86 bpm with a PAC ??Conclusion(s): 1. Predominant rhythm is sinus. 2. Symptoms occurred predominantly during sinus rhythm. 3. No sustained arrhythmias. ?? 07/05/21 holter X 48 hours (outside study) uremarkable PROBLEM LIST: Problem List: 2021-06: Bradycardia, unspecified MEDICATIONS: Current Outpatient Medications Medication Sig Dispense Refill ??? losartan (Cozaar) 25 mg Tablet Take 1 tablet by mouth daily. 90 tablet 0 ??? hydroCHLOROthiazide (Hydrodiuril) 12.5 mg Tablet Take [...] the past 24 hrs: Pulse BP SpO2 11/21/21 0920 65 155/74 99 % No results found for this [...] HCTZ 12.5 started by her PCP. I added losartan 25 mg last appointment, but she never started this ?? Blood pressure at home with systolics in the 130s. ?? Optimal blood pressure would be at least < 130 and even lower ?? Plan: she will try HCTZ 25 mg daily and record readings. I will see her back and she can also call in with any questions. F/U in the Advanced Hypertension clinic Wed morning History of SVT ?? She describes having episodes of rapid heart beats and also slow HR (to 30s) by her wearable device ?? ziopatch as noted above ?? Will not start beta kae at this time Overall cardiac status ?? She has chest pain although her description is not entirely consistent with that of angina. I would like to know her cardiac function and also feel it is reasonable to evaluate for ischemia. ?? stress echocardiogram as noted above Lifestyle ?? Exercises regularly on the elliptical, is aware of low sodium diet Time spent for this clinic appointment on the date of service includes: 1) [id number] counseling as noted above 2) reviewing past medical records, cardiac testing, results of laboratory testing 3) coordinating care with other physicians and allied health care providers Kavitha Reilly MD, Jovan, FACC, FNLA Attending Prepress Operator [facility] Program Preventive Cardiology Lipid Clinic Advanced Hypertension Clinic documented in this encounter Plan of Treatment Not on file documented as of this encounter Visit Diagnoses Diagnosis Bradycardia, unspecified Other specified cardiac dysrhythmias Hypertension, essential, benign Essential hypertension, benign Encounter for screening for lipid disorder documented in this encounter Care Teams Jewel Corner Brushing Machine Operator Relationship Specialty Start Date End Date Burton Agosto MD PCP - General Family Medicine 07/12/21 07/03/22 documented as of this encounter
--- OUTSIDE RECORDS SUMMARY | 2024-08-21 00:09 | XMS_ITS | Encounter Summary ---
Author Organization [facility] [place] [address] Care Team Providers Care Aids Counselor Name Role Phone Stefani Alfonso MD Primary Care Provider [phone] Encounter Details Date Type Department Care Team (Late st Contact Info) Description 09/03/2018 Ancillary Procedure Radiology [facility] at [facility] [place] [address] Beatriz Grissom DO [address] [place], [place] [id number] Social History Tobacco Use Types Packs/Day Years [...] Comments FILM LIBRARY STORAGE ONLY MAMMO Routine 09/03/2018 12:00 AM EST documented in this encounter Results * Film Library- Storage Only Mammo (09/03/2018 12:00 AM EST) Narrative [facility] - 07/19/2022 5:29 PM EST This exam is auto-finalizing. It's purpose is for storage only. Beatriz B Krechetoff DO IMG FILM LIBRARY O RDERABLES [facility] RAD [place], [place] documented in this encounter Visit Diagnoses Not on filedocumented in this encounter Care Teams Aids Counselor Relationship Specialty Start Date End Date Stefani Alfonso MD [address] [place] [address] PCP - General Family Medicine 12/22/16 07/11/21 documented as of this encounter
--- NOTE | 2024-08-21 07:18 | DI.MAMMO_ITS ---
Exam(s) MAMMO SCREENING EXAM: MAMMO SCREENING CLINICAL HISTORY: screening,z12.39 TECHNIQUE: Mammograms were interpreted according to the usual protocol including computer analysis w [employer] CAD system, tomosynthesis and C-view imaging. COMPARISON: 2014 through 2021 FINDINGS: The breasts are composed of scattered fibroglandular densities, Breast Density category B. No suspicious masses or suspicious microcalcifications are seen. No skin thickening or abnormal axillary lymph nodes are seen. There has been no significant change from prior exams. IMPRESSION: BI-RADS Category 1, Negative mammogram Yearly screening mammography is recommended. Breast Density - Category B, scattered fibroglandular densities. A negative radiographic report should not delay biopsy if a dominant or clinically suspicious mass is present. Up to ten percent of cancers are not identified on mammography. A negative report may reinforce clinical impression. Adenosis and dense breasts may obscure an underlying neoplasm. False positive reports average 6 to 10%. Patient will receive a letter notifying them of these results.
== END 2024-08-21 00:26 ==
PROVIDERS: PCP Student in an Organized Health Care Education/Training Program; Visit Provider Student in an Organized Health Care Education/Training Program
DX: Z12.31 Encounter for screening mammogram for malignant neoplasm of breast (principal); R92.323 Mammographic fibroglandular density, bilateral breasts
CPT/HCPCS: 77063; 77067